=== PATIENT | female | born 1955 | race Caucasian/White ===

== ENCOUNTER → 2024-04-20 | Outpatient (CLI) | payer BC, SELFPAY ==
[2024-04-20 08:47] LABS: Basophils # (Auto) 0.1 Thou/mm3 (0.0-0.2); Basophils % (Auto) 1 % (0-2.5); Eosinophils # (Auto) 0.2 Thou/mm3 (0.0-0.5); Eosinophils % (Auto) 4 % (0-10); Hematocrit 35.5 % (36.0-46.0); Hemoglobin 11.1 g/dL (12.0-16.0); Immature Granulocytes % (Auto) 0 % (0-0); Immature Granulocytes Auto 0.01 Thou/mm3 (0.00-0.00); Lymphocytes # (Auto) 1.6 Thou/mm3 (1.0-4.8); Lymphocytes % (Auto) 31 % (10-50); Mean Corpuscular HGB Conc 31.3 g/dl (31.0-37.0); Mean Corpuscular Volume 89 fL (80-100); Monocytes # (Auto) 0.4 Thou/mm3 (0.0-0.8); Monocytes % (Auto) 8 % (0-12); Neutrophils # (Auto) 2.9 Thou/mm3 (1.8-7.7); Neutrophils % (Auto) 57 % (37-80); Nucleated Red Blood Cell % 0 /100 WBC (0); Platelet Count 204 Thou/mm3 (140-440); RDW Standard Deviation 46.2 fL (36.4-46.3); Red Blood Count 3.97 Miln/mm3 (4.00-5.20); White Blood Count 5.1 Thou/mm3 (3.6-11.0)
[2024-04-20 09:08] LABS: Alanine Aminotransferase 46 U/L (10-49); Albumin, Serum 4.4 gm/dL (3.4-4.8); Alkaline Phosphatase 78 U/L (46-116); Anion Gap 7 (7-16); Aspartate Amino Transferase 36 U/L (0-34); BUN/Creatinine Ratio 8 Ratio (12-20); Bilirubin,Total 0.5 mg/dL (0.3-1.2); Blood Urea Nitrogen 7 mg/dL (9-23); Calcium 8.6 mg/dL (8.3-10.6); Calcium (Corrected) 8.6 mg/dL (8.5-10.1); Carbon Dioxide 28.5 mMol/L (20.0-31.0); Chloride 107 mMol/L (98-107); Creatinine (Component) 0.9 mg/dL (0.6-1.3); Globulin 2.2 gm/dL (2.3-3.5); Glucose 96 mg/dL (74-106); Osmolality,Calculated 281 (275-295); Potassium 4.2 mMol/L (3.4-5.1); Sodium 142 mMol/L (136-145); Total Protein 6.6 gm/dL (5.7-8.2); eGFR > 60 See Note
[2024-04-20 09:19] LABS: CA 15-3 16.5 U/mL (<32.4); Carcinoembryonic Antigen 1.5 ng/mL (0.0-5.0)
== END | disposition home or self-care (01) ==
LOC: SCTO 07:14
PROVIDERS: PCP Family Medicine; Referring Provider Internal Medicine Hematology & Oncology; Visit Provider Internal Medicine Hematology & Oncology
DX: C50.211 Malignant neoplasm of upper-inner quadrant of right female breast (principal)
CPT/HCPCS: 36415; 80053; 82378; 85025; 86300

== ENCOUNTER 2024-05-02 11:03 | Outpatient (RCR) | payer BC, SELFPAY ==
--- NOTE | 2024-05-03 06:26 | CTCFLWUP_ITS ---
Patient: GOLD LAIRD : 1955 Page 5 of 6 FOLLOW UP NOTE DATE OF SERVICE: 05/02/2024 NAME: GOLD LAIRD ACCOUNT: [id number] : 1955 AGE: 69 INTERVAL HISTORY: Patient doing well. She says she does not want to do further mammograms here and will follow with the Dr. Pandey. She has appointment coming up with him. Otherwise denies any other complaint. ONCOLOGY HISTORY: DIAGNOSIS: Malignant neoplasm of upper-inner quadrant of right female breast [ICD10] C50.211 Stage Ia (pT1a, sN0, cM0), ER positive, WA positive, HER2/yolande, grade 1 invasive ductal carcinoma of the right breast. S/p lumpectomy and sentinel lymph node biopsy (01/21/2023) On tamoxifen since 03/03/2023. History of Nelson's esophagus, history of fundoplication x 2, history of vagotomy. Osteoporosis. The patient is getting Prolia injections from her title agent in [place] every 6 months. DATE OF DIAGNOSIS: 12/22/2022 STAGE/TNM: Stage Ia (pT1a, sN0, cM0), ER positive, WA positive, HER2/yolande, grade 1 invasive ductal carcinoma of the right breast. 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 Citracal plus D - 250 mg calcium- 200 unit 1 tab Daily 2. Compazine - 15 mg 3. gabapentin - 100 mg 1 tab Three times a day 4. levothyroxine - 112 mcg/24 h Daily 5. nystatin - 100,000 unit/gram 1 Application twice a day to affected areas 6. Pepcid - 20 mg As needed 7. rabeprazole sodium - 20 mg Daily 8. tamoxifen - 20 mg 1 tab one tab po q daily 9. Zofran - As needed Medications Last Reconciled by Fabiola Daniels MA on 05/02/2024 ALLERGIES: tetracycline HCl REVIEW OF SYSTEMS: A complete 14-point review of systems was performed and is negative except as noted in interval history. PHYSICAL EXAMINATION: VITAL SIGNS: Temperature?98.1, B/P?124/65, Oxygen?Saturation?100% Weight?175?lbs PAIN: 0 - No pain ECOG Performance Status: 0 - Asymptomatic and fully active GENERAL APPEARANCE: Appears well, in no apparent distress, appropriately interactive. HEENT: Normocephalic, no temporal wasting, normal conjunctiva, no scleral icterus, normal hearing, lips without lesions, neck normal range of motion. CARDIOVASCULAR: Not assessed. PULMONARY: Normal respiratory effort, no respiratory distress or use of accessory muscles, speaking in full sentences, no tachypnea. EXTREMITIES: No pedal edema or cyanosis. SKIN: Normal skin appearance. NEUROLOGIC: Alert and oriented x4. PSHYCHIATRIC: Appropriate affect, mood normal, behavior normal, intact thought and speech. Breast/axilla and chest examination do not reveal any palpable masses LABORATORY DATA: I have personally reviewed and interpreted each of the patient?s relevant lab tests, abnormal findings are below: Date 04/20/24 ??WHITE?BLOOD?COUNT?(Thou/mm3) 5.1 ??RED?BLOOD?COUNT?(Miln/mm3) 3.97?L ??HEMOGLOBIN?(gm/dl) 11.1?L ??HEMATOCRIT?(%) 35.5?L ??PLATELET?COUNT?(Thou/mm3) 204 ??NEUTROPHILS?%,?AUTO?(%) 57 ??LYMPH?%,?AUTO?(%) 31 ??NEUTROPHILS,?AUTO?(Thou/mm3) 2.9 ASSESSMENT/PLAN: 1. The patient is clinically doing well without any complaints. Chest pain is resolved. 2. Recent PET/CT scan is negative. 3. Tolerating tamoxifen very well without any significant side effects. Tamoxifen was started on 03/09/2023. 4. Stage Ia (pT1a, sN0, cM0), ER positive, WA positive, HER2/yolande, grade 1 invasive ductal carcinoma of the right breast. 5. S/p lumpectomy and sentinel lymph node biopsy (01/21/2023) 6. History of Nelson's esophagus, history of fundoplication x 2, history of vagotomy. 7. Osteoporosis. The patient gets Prolia injections from her title agent in [place] every 6 months. 1. Continue tamoxifen. 2. Continue Citracal. 3. Patient will be following with Dr. Katherin stewart 4. 6-month mammogram ordered 5. Patient gets her Prolia shots and with rheumatology 6. I will see her back in clinic in 6 months with labs drawn prior to the visit. CBC CMP CA 15-3 mammogram RETURN TO CLINIC: 6 months BILLING AND COMPLIANCE: I reviewed external records from providers outside my specialty as summarized above. I spent a total of 50 minutes on this patient?s care on the day of their visit excluding time spent related to any billed procedures. This time includes time spent with the patient as well as time spent documenting in the medical record, reviewing patients records and tests, obtaining history, placing orders, communicating with other healthcare professionals, counseling the patient, family or caregiver, and/or care coordination for the diagnoses above. Electronically Signed by: Lucas Vidal MD T: 6:24 AM CC: PCP: Vania Hernández Referring: Vania Hernández This document was completed utilizing speech recognition software. Grammatical errors, random word insertions, pronoun errors, and incomplete sentences are an occasional consequence of this system due to software limitations, ambient noise, and hardware issues. Any formal questions or concerns about the content, text or information contained within the body of this dictation should be directly addressed to the provider for clarification.
== END 2024-05-25 23:59 | disposition home or self-care (01) ==
LOC: SCTC 11:03
PROVIDERS: PCP Family Medicine; Referring Provider Family Medicine; Visit Provider Internal Medicine Hematology & Oncology
DX: C50.411 Malignant neoplasm of upper-outer quadrant of right female breast (principal); Z17.0 Estrogen receptor positive status [ER+]; Z17.21 Progesterone receptor positive status; Z17.32 Human epidermal growth factor receptor 2 negative status; Z90.11 Acquired absence of right breast and nipple; Z79.810 Long term (current) use of selective estrogen receptor modulators (SERMs); M81.0 Age-related osteoporosis without current pathological fracture
CPT/HCPCS: 99213; G0463

== ENCOUNTER 2024-05-06 15:05 | Emergency (ER) | payer BC, SELFPAY ==
[2024-05-06] VITALS (7 sets, daily range): BP systolic 131–149; BP diastolic 66–79; PULSE 55–72; RESP 16–23; TEMP 36.7–37.4; O2SAT 97–100; BMI 23.5
--- NOTE | 2024-05-06 15:11 | PC.NURSE ---
biba from home for n/v has episodes of emesis, last time was about 3 months ago. accompanied by chest pain.
--- NOTE | 2024-05-06 15:19 | EKG_ITS ---
[facility] Test Date: 2024-05-06 Pat Name: GOLD LAIRD Department: Room: - Gender: Female Cryptozoologist: : 1955 Requested By: ED Temporary Provider Order Number: [id number] Reading MD: ED Temporary Provider Measurements Intervals [place] Rate: 56 P: 31 ND: 159 QRS: -13 QRSD: 96 T: -12 QT: 451 QTc: 437 Interpretive Statements SINUS BRADYCARDIA LOW QRS VOLTAGE IN PRECORDIAL LEADS [QRS DEFLECTION < 1.0 mV IN CHEST LEADS] POSSIBLE ANTERIOR MYOCARDIAL INFARCTION , OF INDETERMINATE AGE [30 ms Q WAVE IN V3/V4, OR R < 0.2 mV IN V4] Compared to ECG 01/15/2023 13:03:19 Myocardial infarct finding now present Ventricular premature complex(es) no longer present Incomplete right bundle-branch block no longer present T-wave abnormality no longer present Prolonged QT interval no longer present /store/S0/[id number].pdf
--- NOTE | 2024-05-06 15:20 | XR_ITS ---
Examination: AP chest single view Technique one AP portable sitting chest single view Exam date and time: May 06, 2024 1533 hrs. Indications: Chest pain today. Findings: Mild enlargement left ventricle Mild vascular congestion No lobar pneumonia Impression: Mild vascular congestion No lobar pneumonia
[2024-05-06 15:40] LABS: Basophils % (Auto) 1 % (0-2.5); Eosinophils % (Auto) 0 % (0-10); Hematocrit 37.8 % (36.0-46.0); Hemoglobin 12.4 g/dL (12.0-16.0); Immature Granulocytes % (Auto) 0 % (0-0); Immature Granulocytes Auto 0.02 Thou/mm3 (0.00-0.00); Lymphocytes % (Auto) 11 % (10-50); Mean Corpuscular HGB Conc 32.8 g/dl (31.0-37.0); Mean Corpuscular Hemoglobin 28.1 pg (25.0-35.0); Mean Corpuscular Volume 86 fL (80-100); Monocytes # (Auto) 0.2 Thou/mm3 (0.0-0.8); Monocytes % (Auto) 2 % (0-12); Neutrophils # (Auto) 7.4 Thou/mm3 (1.8-7.7); Neutrophils % (Auto) 86 % (37-80); Nucleated Red Blood Cell % 0 /100 WBC (0); Platelet Count 239 Thou/mm3 (140-440); RDW Standard Deviation 43.7 fL (36.4-46.3); Red Blood Count 4.42 Miln/mm3 (4.00-5.20); White Blood Count 8.6 Thou/mm3 (3.6-11.0)
[2024-05-06 15:56] LABS: B-Type Natriuretic Peptide 111 pg/mL (0-100)
[2024-05-06 15:57] LABS: Alanine Aminotransferase 19 U/L (10-49); Albumin, Serum 4.8 gm/dL (3.4-4.8); Albumin/Globulin Ratio 1.8 (1.2-2.2); Alkaline Phosphatase 77 U/L (46-116); Anion Gap 14 (7-16); Aspartate Amino Transferase 23 U/L (0-34); BUN/Creatinine Ratio 10 Ratio (12-20); Bilirubin,Total 0.6 mg/dL (0.3-1.2); Blood Urea Nitrogen 9 mg/dL (9-23); Calcium 9.3 mg/dL (8.3-10.6); Calcium (Corrected) 9.3 mg/dL (8.5-10.1); Carbon Dioxide 20.2 mMol/L (20.0-31.0); Chloride 105 mMol/L (98-107); Creatinine (Component) 0.9 mg/dL (0.6-1.3); Globulin 2.7 gm/dL (2.3-3.5); Glucose 163 mg/dL (74-106); Lipase 24 U/L (12-53); Magnesium 1.6 mg/dL (1.6-2.6); Osmolality,Calculated 280 (275-295); Potassium 3.2 mMol/L (3.4-5.1); Sodium 139 mMol/L (136-145); Total Protein 7.5 gm/dL (5.7-8.2); Troponin I < 0.020 ng/mL (0.0-0.045); eGFR > 60 See Note
--- NOTE | 2024-05-06 16:06 | EDNOTE_ITS ---
<Statement entered by Yolanda Foster MD - 05/08/24 06:44> As co-signing physician, I was present and available for consult prn. I concur with the plan and care as documented by the midlevel provider. Nausea/Vomit./Diarrhea-RME/HPI General Chief complaint: Nausea/Vomiting/Diarrhea Stated complaint: NAUSEA VOMITING Time Seen by Provider: 05/06/24 15:19 Source: patient Arrival date/time: 05/06/24 15:05 This is a 69-year-old female presenting to the ED BIBA from home for reported nausea/vomiting. Patient at this time is not being verbal. 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 Reports to ER with medical instructions stating the patient has episodes of nausea, vomiting ,hypotension and fluctuating heart rate due to intractable nausea from a severed vagus nerve in 2016. She does have an received a usual, cocktail of Benadryl and Reglan and Haldol helps her. She reports she attempted her home medications with no help prompting her ED visit today. No other complaints. Mode of arrival: ambulatory Related Data Home Medications ?Medication ?Instructions ?Recorded ?Confirmed famotidine 20 mg tablet (Pepcid) 20 mg PO QDAY 4 01/02/24 gabapentin 100 mg capsule 100 mg PO TID 01/02/2401/01 levothyroxine 112 mcg tablet 112 mcg PO QDAY 01/02/24 01/02/24 omeprazole 20 mg tablet,delayed 20 mg PO QDAY 01/02/24 01/02/24 release ondansetron 4 mg disintegrating 4 mg PO Q6H PRN Nausea 01/02/24 01/02/24 tablet tamoxifen 20 mg tablet 20 mg PO QDAY 01/02/2401/01 Allergies Allergy/AdvReac Type Severity Reaction Status Date / Time tetracycline Allergy Severe WELTS / Verified 01/02/24 07:56 SWELLING Review of Systems Review of Systems Systems Reviewed: All systems reviewed, normal except as documented Narrative Review of Systems: Gen: No fever, no chills, no weight loss EYES: No discharge, no visual changes, no pain HEENT: No ear pain, no congestion, no sore throat PULM: No shortness of breath, no cough, no congestion CV: No chest pain, no dyspnea on exertion, no palpitations GI: +nausea, +vomiting, no diarrhea, no pain, no constipation : No frequency, no urgency, no dysuria Musc/skel: No joint pain, no back pain Skin: No rash Psyc: No hallucinations, no depression Heme/Lymph: No easy bleeding or bruising tendencies Neuro: No weakness, no headache ED Exam Narrative Physical exam: General: Sittiing in Exam t in mild distress due to vomiting. HENT: normocephalic, atraumatic, EOMI, PERRLA, moist mucous membranes Chest: chest wall is nontender Cardiac: regular rate and rhythm, normal S1 and S2, no murmurs, rubs, or gallops, capillary refill ?2 seconds Pulmonary: clear to auscultation bilaterally, no wheezing, crackles, or rhonchi Abdominal: active bowel sounds, soft, nontender, nondistended Neuro: A&OX3, CN II-XII intact, sensation grossly intact bilaterally in UE and LE. Skin: no rashes, no ecchymosis Ext: no lower extremity edema Course Quality Measures none Orders Category Date Time Status Early Childhood Coordinator STAT Care 05/06/24 15:20 Completed Continuous Pulse Oximetry ONCE Care 05/06/24 15:20 Completed EKG (ED ONLY) *Do not use* NOW Care 05/06/24 15:19 Completed Insert IV STAT Care 05/06/24 15:20 Completed EKG (ED Only) Urgent Exams 05/06/24 15:19 Draft XR chest 1V portable Stat Exams 05/06/24 15:20 Completed B-Type Natriuretic Peptide Stat Lab 05/06/24 15:32 Completed CBC Stat Lab 05/06/24 15:32 Completed Comprehensive Metabolic Panel Stat Lab 05/06/24 15:32 Completed Lipase Stat Lab 05/06/24 15:32 Completed Magnesium Stat Lab 05/06/24 15:32 Completed Prothrombin Time with INR Stat Lab 05/06/24 15:32 Completed Troponin I Stat Lab 05/06/24 15:32 Completed DiphenhydrAMINE INJ [Benadryl Inj] Med 05/06/24 16:03 Discontinued 12.5 mg IVP X1 ONE DiphenhydrAMINE INJ [Benadryl Inj] Med 05/06/24 16:05 Discontinued 25 mg IVP X1 ONE Haloperidol Lactate [Haldol Inj] Med 05/06/24 16:03 Discontinued 5 mg IM X1 ONE Magnesium Sulfate 2 GM Ivpb [Magnesium Sulfate Ivpb] Med 05/06/24 16:28 Discontinued 2 gm in 50 ml IV X1 Metoclopramide Inj [Reglan Inj] Med 05/06/24 16:03 Discontinued 10 mg IVP X1 ONE Sodium Chloride 0.9% 1000 ml [Ns] 1,000 ml Med 05/06/24 16:03 Discontinued IV 999 mls/hr Vital Signs Vital signs: Vital Signs Temperature 98.5 F 05/06/24 15:19 Pulse Rate 72 05/06/24 15:19 Respiratory Rate 20 05/06/24 15:19 Blood Pressure 136/71 H 05/06/24 15:19 Pulse Oximetry (%) 100 05/06/24 15:19 Oxygen Delivery Method Room Air 05/06/24 15:19 Nausea/Vomiting/Diarrhea MDM Narrative MDM Narrative:: Pt is awake and alert, no distress. Vital signs stable. General labs, EKG chest x-ray ordered. Treatment here included IV fluid and Benadryl and Reglan and Haldol as she normally receives for this issue. While in ED the nurse brought in a strip noticed she had a EKG change after medication. I did go ahead and loaded her up with mag her last mag level was 1.6. Potassium is 3.2 will do oral dose x 1 when patient is improved Based on my best medical judgment, made decision no further evaluation or treatment indicated at this time.? Patient understands and agrees to the discharge instructions customized and printed, see below. 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 Social determinants that could affect healthcare access:: none Patient has the following chronic illnesses:: Chronic vomiting, hypothyroidism, history of fundoplication How is presenting disease/condition affected by chronic disease/condition?: no chronic disease Evaluation data The following diagnostics were reviewed and interpreted by me:: lab results, radiology exam(s) and EKG tracing(s) Lab and/or radiology exams considered but not ordered:: No Interpretation Summary: Examination: AP chest single view Technique one AP portable sitting chest single view Exam date and time: May 06, 2024 1533 hrs. Indications: Chest pain today. Findings: Mild enlargement left ventricle Mild vascular congestion No lobar pneumonia Impression: Mild vascular congestion No lobar pneumonia Medications / Prescriptions Medications / Prescriptions considered but not ordered:: No Medication administrations:: Medication Administration History Discontinued Medications Diphenhydramine HCl (Diphenhydramine Inj 50 Mg/Ml Vial) 12.5 mg IVP X1 ONE Stop: 05/06/24 16:04 Last Admin: 05/06/24 16:54 Dose: Not Given Documented By: Non-Admin Reason: Cancelled by Provider Diphenhydramine HCl (Diphenhydramine Inj 50 Mg/Ml Vial) 25 mg IVP X1 ONE Stop: 05/06/24 16:06 Last Admin: 05/06/24 16:11 Dose: 25 mg Documented By: Haloperidol Lactate (Haloperidol Lact Inj 5 Mg/Ml Vial) 5 mg IM X1 ONE Stop: 05/06/24 16:04 Last Admin: 05/06/24 16:13 Dose: 5 mg Documented By: Sodium Chloride (Ns) 1,000 mls @ 999 mls/hr IV .Q1H1M ONE Stop: 05/06/24 17:03 Last Infusion: 05/06/24 17:47 Dose: Infused Documented By: Admin: 05/06/24 16:30 Dose: 999 mls/hr Documented By: Magnesium Sulfate (Magnesium Sulfate Ivpb) 2 gm in 50 mls @ 25 mls/hr IV X1 ONE Stop: 05/06/24 18:27 Last Admin: 05/06/24 16:44 Dose: 25 mls/hr Documented By: Metoclopramide HCl (Metoclopramide Inj 5 Mg/Ml Vial 2 Ml) 10 mg IVP X1 ONE; Protocol Stop: 05/06/24 16:04 Last Admin: 05/06/24 16:16 Dose: 10 mg Documented By: All medications administered and effective Consultations Consultation(s) initiated? (list below): No Diagnosis Nausea Differential Diagnosis: traveler's diarrhea, food poisoning, gastroenteritis and dehydration Most likely diagnosis given after review of the tests above:: Electrolyte imbalance, chronic nausea. Vomiting Admission Indicated Admission indicated?: not indicated Admission Request Was there a request for admission?: No Disposition Plan Disposition Plan: Discharge Discharge Attestation Discharge Attestation: The patient and all family members were given an opportunity to ask questions and understood the discharge instructions. Discharge instructions specifically effects, indications for sooner follow up or return to the emergency department, and the expected course of current diagnosis. Patient condition: Stable Discharge Plan Plan Patient Disposition: HOME (Self Care) Prescriptions/Referrals Prescriptions/Med Rec: No Action famotidine [Pepcid] 20 mg Tablet 20 mg PO QDAY gabapentin 100 mg capsule 100 mg PO TID Patient Comments: TAKE 1 CAPSULE BY MOUTH THREE TIMES A DAY FOR 30 DAYS ondansetron 4 mg Tablet,Disintegrating 4 mg PO Q6H PRN (Reason: Nausea) tamoxifen 20 mg tablet 20 mg PO QDAY Patient Comments: TAKE 1 TABLET BY MOUTH EVERY DAY levothyroxine 112 mcg tablet 112 mcg PO QDAY Patient Comments: TAKE 1 TABLET BY MOUTH EVERY DAY omeprazole 20 mg Tablet,Delayed Release (Dr/Ec) 20 mg PO QDAY Referrals: No Primary/Family,Physician [Primary Care Provider] - In 1 week Problem List Clinical Impression: Nausea & vomiting Patient/Caregiver Discharge Instructions Discharge Activity: activity as tolerated Education Materials: ED Diet for Vomiting or ... Additional Instructions: It is very important that you follow-up with your primary doctor within 2 days. Continue take your medication as directed. reTurn to the emergency department this any worsening symptoms or change in condition. Print Language: Citizen Of [place] Stand Alone Forms: Radha Award Info., Patient Portal Info Letter PA/ROSAURA Supervising Physician PA/ROSAURA Supervising Physician: Dr. Foster
[2024-05-06] MEDS: DiphenhydrAMINE INJ 50 MG/ML VIAL 25 MG IVP (16:11)
[2024-05-06] MEDS: HALOPERIDOL LACT INJ 5 MG/ML VIAL IM (16:13)
[2024-05-06] MEDS: METOCLOPRAMIDE INJ 5 MG/ML VIAL 2 ML 10 MG IVP (16:16)
[2024-05-06] MEDS: SODIUM CHLORIDE 0.9% 1000 ML 1,000 ML 999 ML IV (16:30)
[2024-05-06] MEDS: Magnesium Sulfate 2 GM Ivpb 2 GM/50 ML BAG IV (16:44)
== END 2024-05-06 20:38 | disposition home or self-care (01) ==
PROVIDERS: Nurse Practitioner Primary Care; Emergency Provider Emergency Medicine
DX: R11.2 Nausea with vomiting, unspecified (principal); R07.9 Chest pain, unspecified
CPT/HCPCS: 36415; 71045; 80053; 83690; 83735; 83880; 84484; 85025; 85610; 93005; 96361; 96374; 96375; 99284; J1200; J1630; J2765; J3475; J7030

== ENCOUNTER 2024-06-05 08:13 | Outpatient (RCR) | payer BC, SELFPAY | END 2024-06-25 23:59 | disposition home or self-care (01) | LOC: SCTC 08:13 | PROVIDERS: PCP Family Medicine; Referring Provider Radiology Therapeutic Radiology; Visit Provider Radiology Therapeutic Radiology | DX: C50.211 Malignant neoplasm of upper-inner quadrant of right female breast (principal); Z17.0 Estrogen receptor positive status [ER+]; Z17.21 Progesterone receptor positive status; Z17.32 Human epidermal growth factor receptor 2 negative status; Z90.11 Acquired absence of right breast and nipple; Z92.3 Personal history of irradiation; Z79.810 Long term (current) use of selective estrogen receptor modulators (SERMs); M81.0 Age-related osteoporosis without current pathological fracture | CPT/HCPCS: 99212; G0463 ==

== ENCOUNTER → 2024-07-20 | Outpatient (CLI) | payer BC, SELFPAY ==
--- NOTE | 2024-07-20 12:00 | XR_ITS ---
Examination: Bone densitometry Date and time of exam:July 20, 2024 1221 hours INDICATIONS: Menopause age 57 post menopausal elbow fracture personal history osteoporosis Technique: Lumbar spine and hip total bone mineralization values of an calculated. Peak reference and age match control results have been displayed. Findings: Lumbar spine total bone mineralization is0.993 gm/cm2. This is 0.5 standard deviations below peak reference. This is 1.4 standard deviations above age-matched controls. Hip total bone mineralization is 0.616 gm/cm2 This is 2.7 standard deviations below peak reference. This is 3 standard deviations below age-matched controls Impression: There is normal mineralization based on lumbar spine measurements. There is osteoporosis based on hip measurements Lumbar mineralization is increase 10.2% compared with May 21, 2022 Hip mineralization is increased 1.0% compared with May 21, 2022
== END | disposition home or self-care (01) ==
LOC: CDIM 11:32
PROVIDERS: PCP Family Medicine; Referring Provider Physician Assistant Medical; Visit Provider Physician Assistant Medical
DX: M81.0 Age-related osteoporosis without current pathological fracture (principal)
CPT/HCPCS: 77080

== ENCOUNTER → 2024-08-02 | Outpatient (CLI) | payer BC, SELFPAY ==
--- NOTE | 2024-08-02 10:00 | XR_ITS ---
Examination: Diagnostic digital mammography, bilateral Computer aided detection 3-D breast Tomosynthesis, bilateral Date and time of exam: August 02, 2024 0945 hours Comparison made to mammograms dated to March 19, 2020 Technique: Nonmagnified MLO, CC views of the breasts to been obtained, reconstructed from 3-D Tomosynthesis images. R2 computer aided detection program utilized for evaluation of suspicious masses and/or abnormal calcifications. 3-D Tomosynthesis images obtained. Findings: Scattered areas of fibroglandular density. Scar formation upper right breast with surgical clips again depicted consistent with history treated right breast cancer Benign calcifications. No interval suspicious masses Impression: BI-RADS Category 2: Benign findings Recommend yearly follow-up mammography.
== END | disposition home or self-care (01) ==
LOC: CDIM 09:29
PROVIDERS: Referring Provider Surgery; Visit Provider Surgery
DX: R92.323 Mammographic fibroglandular density, bilateral breasts (principal); R92.1 Mammographic calcification found on diagnostic imaging of breast
CPT/HCPCS: 77062; 77066; G0279

== ENCOUNTER 2024-08-14 06:36 | Observation (INO) | payer BC, SELFPAY ==
[2024-08-14] VITALS (13 sets, daily range): BP systolic 85–153; BP diastolic 58–76; PULSE 45–84; RESP 14–99; TEMP 36.1–37.3; O2SAT 92–100; BMI 25.8; BMI 24.7
--- NOTE | 2024-08-14 07:18 | EKG_ITS ---
[facility] Test Date: 2024-08-14 Pat Name: GOLD LAIRD Department: Room: - Gender: Female Supervisor Mending: : 1955 Requested By: Gregorio Castellanos Order Number: [id number] Reading MD: Gregorio Castellanos Measurements Intervals [place] Rate: 65 P: 34 TX: 142 QRS: -2 QRSD: 94 T: -14 QT: 440 QTc: 461 Interpretive Statements SINUS RHYTHM WITH FREQUENT VENTRICULAR PREMATURE COMPLEXES IN A BIGEMINAL PATTERN NONSPECIFIC ST & T-WAVE ABNORMALITY ABNORMAL RHYTHM ECG Compared to ECG 05/06/2024 15:27:13 Ventricular premature complex(es) now present T-wave abnormality now present Sinus bradycardia no longer present Myocardial infarct finding no longer present /store/S0/[id number]
--- NOTE | 2024-08-14 07:18 | PD.EDNV ---
Nausea/Vomit./Diarrhea-RME/HPI General Chief complaint: Nausea/Vomiting/Diarrhea Stated complaint: N/V Time Seen by Provider: 08/14/24 07:11 Arrival date/time: 08/14/24 06:36 RME / HPI RME / HPI Narrative: DR. DAVIES MAIN ED EVALUATION: 69 year old female presents to the Emergency Department [facility] with complaints of nausea and vomiting nonstop today. Symptoms are moderate. No other symptoms reported at this time. 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 PMHx: Osteoporosis, Nelson's Esophagus, osteopenia, osteoarthritis, gastroparesis, diverticulitis, hypothyroidism, prolapsed mitral valve, right breast cancer, invasive ductal carcinoma. PSHx: Double inguinal hernia repair in 1959, Live fundoplication & hiatal hernia repair in 2001, complete thyroidectomy in 2003, torpet fundoplication & hernia repair in 2015 and at that time they severed her vagal nerve and since has nausea and vomiting problems; G/JPEG placement from 05/2015 and removed 01/2017, cholecystectomy in 2015, pyloroplasty in 2015, and right lumpectomy in 2022. Social Hx: No tobacco, alcohol, or substance use. Related Data Home Medications ?Medication ?Instructions ?Recorded ?Confirmed famotidine 20 mg tablet (Pepcid) 20 mg PO QDAY 01/02/24 01/02/24 gabapentin 100 mg capsule 100 mg PO TID 01/02/24 01/02/24 levothyroxine 112 mcg tablet 112 mcg PO QDAY 01/02/24 01/02/24 omeprazole 20 mg tablet,delayed 20 mg PO QDAY 01/02/24 01/02/24 release ondansetron 4 mg disintegrating 4 mg PO Q6H PRN Nausea 01/02/24 01/02/24 tablet tamoxifen 20 mg tablet 20 mg PO QDAY 01/02/24 01/02/24 Allergies Allergy/AdvReac Type Severity Reaction Status Date / Time tetracycline Allergy Severe WELTS / Verified 01/02/24 07:56 SWELLING Review of Systems Review of Systems Systems Reviewed: All systems reviewed, normal except as documented Narrative Review of Systems: Constitutional: DENIES: fevers; Eyes: DENIES: loss of vision; Head/Ear/Nose: DENIES: loss of hearing. Throat: DENIES: dysphagia. Cardiovascular: DENIES: chest pain, dyspnea, or syncope. Respiratory: DENIES: shortness of breath; Gastrointestinal: POSITIVES: nausea and vomiting; DENIES: rectal bleeding or melena. Genitourinary: DENIES: dysuria (painful or difficult urination); Musculoskeletal: DENIES: arthralgia (pain in a joint); Skin: DENIES: rash; Neurological: DENIES: loss of function or movement; Psychiatric: DENIES: recent major life stressor, emotional problem, illicit drug use or abuse; Endocrinology: DENIES: weight change,; Hematologic/Lymphatic: DENIES: abnormal bruising. Allergic/Immunologic: DENIES: urticaria (hives). Past Medical History Past Medical History CARDIAC: Positive Cardiac Disorders, Valvular Heart Disease (mitral valve prolapse) and Hypertension RESPIRATORY: Positive Asthma GASTROINTESTINAL: Positive Gastrointestinal Disorders (GASTROPARESIS), Gall Bladder Disease, Nelson's Esophagus, Diverticulosis, Hiatal Hernia, Hemorrhoids and Gastroesophageal Reflux Disease REPRODUCTIVE: Positive Breast Cancer and Previous Pregnancies MUSCULOSKELETAL: Positive Musculoskeletal Disorders, Arthritis and Osteoporosis ENT: Positive Cataracts ENDOCRINE: Positive Endocrine Disorders and Hypothyroidism HEMATOLOGIC: Positive Blood Disorders (hx of blood clots) PSYCHO/SOCIAL: Positive Post Traumatic Stress Disorder OTHER HISTORY: Positive Hospitalization, Radiation Therapy, Chicken Pox, Measles, Cancer and Breast Cancer Surgical History SURGICAL: Positive Thyroidectomy, Abdominal Surgery, Bowel Surgery, Open Reduction Internal Fixation (ankle) and Lumpectomy (right) Social History SMOKING STATUS: Never smoker SUBSTANCE USE: does not use ALCOHOL: Never ED Exam Narrative Physical exam: Physical Exam: General: The vital signs were reviewed. Patient is actively retching when I walk in the room unable to really speak as she appears miserable and uncomfortable. The patient is non-toxic, in no apparent distress and appears healthy with a patent airway, no respiratory distress and has no apparent circulatory problems. Head & Scalp: Normocephalic, atraumatic. Face: Appears normal and is without lesions, deformity. Ears: Left external pinna appears normal. Right external pinna appears normal. Eyes: The sclera is anicteric. No obvious photophobia. The Left and Right Orbit/Lid/Conjunctiva appears normal without swelling, discoloration or injection. Nose: The nose is without deformity, discharge or tenderness; Throat: Appears normal. The mucous membranes are pink and moist without exudates, redness or mass seen. The tongue appears normal. Neck: The neck is supple and no apparent mass or adenopathy. Chest: The chest wall is normal in size and symmetry and has no chest wall tenderness or crepitus. The patient displays normal ventilator effort without retractions, accessory muscle use and has adequate air movement bilaterally with no wheezes and no rales. Cardiovascular: Regular rate and rhythm; No murmurs, rubs, or gallops; Gastrointestinal: The abdomen appears normal. No obvious hernias or mass. The abdomen is soft and benign, non-distended, with no pain, no guarding and no rebound tenderness. Bowel sounds are present and normal sounding. No CVA tenderness. Genitourinary: Back/Spine: Normal inspection Extremities/Musculoskeletal/lymphatic: The bilateral upper and lower extremities are warm. There is no evidence of arterial insufficiency. There is no evidence of venous insufficiency/edema. The patient spontaneously moves bilateral upper and lower extremities with no pain and no limitation of movement. There is no apparent, injury or trauma. Skin: The skin is warm, dry and intact. No rashes. No petechia. No purpura. No abnormal bruising. The color is appropriate with no cyanosis. Mental status/Psychiatric: Mental status is appropriate for age. The patient has no apparent delusions, visual hallucinations, no apparent audible hallucinations. The patient has no apparent suicidal thoughts/ideation and no apparent homicidal thoughts/ideation. Neurological: The patient is awake, alert, interactive, cordial, cooperative and is oriented to name and situation. The patient follows commands and answers historical question with no impairment. There is no visual disturbance apparent. The pupils are equal and reactive bilaterally with normal eye movements and no diplopia The bilateral upper and lower extremities have normal strength, normal range of motion and normal functioning. The gait, station and balance were not tested due to acuity Course Quality Measures none Orders Category Date Time Status EKG (ED ONLY) *Do not use* NOW Care 08/14/24 07:18 Completed NPO NOW Care 08/14/24 07:18 Active Diet NPO (NOW) Diet 08/14/24 07:18 Active EKG (ED Only) Stat Exams 08/14/24 07:18 Draft B-Type Natriuretic Peptide Stat Lab 08/14/24 07:50 Completed CBC Stat Lab 08/14/24 07:50 Completed Comprehensive Metabolic Panel Stat Lab 08/14/24 07:50 Completed Lactate (Lactic Acid) Stat Lab 08/14/24 07:50 Completed Lactic Acid, 3 HR Stat Lab 08/14/24 11:12 Completed Lipase Stat Lab 08/14/24 07:50 Completed Prothrombin Time with INR Stat Lab 08/14/24 07:50 Completed Troponin I Stat Lab 08/14/24 07:50 Completed Urinalysis Stat Lab 08/14/24 11:40 Completed Urinalysis, C/S if Indicated Stat Lab 08/14/24 11:40 Completed DiphenhydrAMINE INJ [Benadryl Inj] Med 08/14/24 07:20 Discontinued 25 mg IV X1 ONE DiphenhydrAMINE INJ [Benadryl Inj] Med 08/14/24 14:38 Discontinued 25 mg IVP X1 ONE Haloperidol Lactate [Haldol Inj] Med 08/14/24 07:19 Discontinued 2 mg IV X1 ONE Haloperidol Lactate [Haldol Inj] Med 08/14/24 14:38 Discontinued 2 mg IV X1 ONE Metoclopramide Inj [Reglan Inj] Med 08/14/24 07:17 Discontinued 10 mg IVP X1 ONE Metoclopramide Inj [Reglan Inj] Med 08/14/24 14:38 Discontinued 10 mg IVP X1 ONE Sodium Chloride 0.9% 1000 ml [Ns] 1,000 ml Med 08/14/24 07:30 Discontinued IV 200 mls/hr Sodium Chloride 0.9% 1000 ml [Ns] 1,000 ml Med 08/14/24 09:30 Discontinued IV 999 mls/hr Sodium Chloride 0.9% 1000 ml [Ns] 1,000 ml Med 08/14/24 15:11 Discontinued IV 999 mls/hr Vital Signs Vital signs: Vital Signs Temperature 98.3 F 08/14/24 07:46 Pulse Rate 56 L 08/14/24 07:46 Respiratory Rate 20 08/14/24 07:46 Blood Pressure 141/76 H 08/14/24 07:46 Pulse Oximetry (%) 96 08/14/24 07:46 Oxygen Delivery Method Room Air 08/14/24 07:46 Nausea/Vomiting/Diarrhea MDM Narrative MDM Narrative:: I, Linda Beyer am scribing for and in the presence of Dr. Davies. Patient comes in with intractable nausea and vomiting has had this multiple times before states she has a severed vagus nerve do a complication of the fundoplication years ago. She states Benadryl Haldol and Reglan are very helpful has a piece of paper that shows her past history detailed out on it she got those medicines and 30 minutes later she was much more comfortable and actually she was sleepy for a while. Went back and reevaluated her she was still feeling nauseated and her initial lactic acid was quite elevated as she is probably presumed dehydrated she had intractable vomiting for 8 hours prior to arrival. A second lactic acid came back after 2 L of fluid and it still elevated at 2.3 but it is improved from 4.5 on the initial lactic acid. Urinalysis essentially came back negative with 13 red cells but send on clean-catch specimen. BNP came back at 120 troponin was negative transaminases and bilirubin were normal. BUN 11 creatinine 1.0 sodium 142 potassium 3.5 chloride 105 CO2 21.7. White count 8.0 hemoglobin 12.3. On reevaluation the patient is still quite nauseated and actually almost looks as bad as when she first came in so it appears the medicines are wearing off and she is got intractable nausea with retching at this time. I will repeat the dose of the medicine we gave her other as she reports this is helpful in the past and then I spoke with the hospitalist and they agreed admit the patient Patient data External records reviewed:: EMS form Clinical information provided by:: patient and EMS Social determinants that could affect healthcare access:: none Patient has the following chronic illnesses:: PMHx: Osteoporosis, Nelson's Esophagus, osteopenia, osteoarthritis, gastroparesis, diverticulitis, hypothyroidism, prolapsed mitral valve, right breast cancer, invasive ductal carcinoma. PSHx: Double inguinal hernia repair in 1960, Live fundoplication & hiatal hernia repair in 2001, complete thyroidectomy in 2003, torpet fundoplication & hernia repair in 2016 and at that time they severed her vagal nerve and since has nausea and vomiting problems; G/JPEG placement from 05/2015 and removed 01/2017, cholecystectomy in 2015, pyloroplasty in 2015, and right lumpectomy in 2022. How is presenting disease/condition affected by chronic disease/condition?: exacerbated by Evaluation data The following diagnostics were reviewed and interpreted by me:: lab results and EKG tracing(s) (EKG#1: EKG at 0837 hours. Interpreted by me: sinus rhythm, rate 65, intermittent ectopic beats, no STEMI) Lab and/or radiology exams considered but not ordered:: none Interpretation Summary: See above under MDM narrative. Medications / Prescriptions Medications / Prescriptions considered but not ordered:: none Medication administrations:: Medication Administration History Acetaminophen (Acetaminophen Supp 650 Mg Supp) 650 mg NV Q6HR PRN PRN Reason: Fever > 100.3 Stop: 09/13/24 15:40 Multivitamins/Minerals 10 ml/ (Lactated Ringer's) 1,010 mls @ 120 mls/hr IV .Q8H25M [facility] Stop: 08/15/24 00:54 Last Admin: 08/14/24 17:12 Dose: 120 mls/hr Documented By: JOSETTE Lactated Ringer's (Lactated Ringers) 1,000 mls @ 120 mls/hr IV .Q8H20M [facility] Stop: 09/14/24 00:54 Levothyroxine Sodium (Levothyroxine Inj 100 Mcg Vial) 50 mcg IV DAILY JOSE Stop: 09/14/24 05:59 Metoclopramide HCl (Metoclopramide Inj 5 Mg/Ml Vial 2 Ml) 10 mg IVP Q6H JOSE; Protocol Stop: 09/13/24 20:44 Ondansetron HCl (Ondansetron Inj 2 Mg/Ml Inj 2 Ml) 4 mg IV Q6H JOSE; Protocol Stop: 09/13/24 15:59 Last Admin: 08/14/24 17:11 Dose: 4 mg Documented By: JOSETTE Pantoprazole Sodium (Pantoprazole Inj 40 Mg Vial) 40 mg IVP QDAY JOSE Stop: 09/13/24 16:14 Last Admin: 08/14/24 17:11 Dose: 40 mg Documented By: JOSETTE Discontinued Medications Diphenhydramine HCl (Diphenhydramine Inj 50 Mg/Ml Vial) 25 mg IV X1 ONE Stop: 08/14/24 07:21 Last Admin: 08/14/24 07:34 Dose: 25 mg Documented By: JOSETTE Diphenhydramine HCl (Diphenhydramine Inj 50 Mg/Ml Vial) 25 mg IVP X1 ONE Stop: 08/14/24 14:39 Last Admin: 08/14/24 15:21 Dose: 25 mg Documented By: TRES Folic Acid (Folic Acid Inj 1 Mg/0.2 Ml) 1 mg IVP X1 ONE Stop: 08/14/24 16:10 Last Admin: 08/14/24 17:12 Dose: 1 mg Documented By: JOSETTE Haloperidol Lactate (Haloperidol Lact Inj 5 Mg/Ml Vial) 2 mg IV X1 ONE Stop: 08/14/24 07:20 Last Admin: 08/14/24 07:34 Dose: 2 mg Documented By: JOSETTE Haloperidol Lactate (Haloperidol Lact Inj 5 Mg/Ml Vial) 2 mg IV X1 ONE Stop: 08/14/24 14:39 Last Admin: 08/14/24 15:20 Dose: Not Given Documented By: TRES Non-Admin Reason: Cancelled by Provider Sodium Chloride (Ns) 1,000 mls @ 200 mls/hr IV .Q5H JOSE Stop: 09/13/24 07:29 Last Infusion: 08/14/24 09:30 Dose: Infused Documented By: Admin: 08/14/24 07:49 Dose: 200 mls/hr Documented By: JOSETTE Sodium Chloride (Ns) 1,000 mls @ 999 mls/hr IV .Q1H1M ONE Stop: 08/14/24 10:30 Last Infusion: 08/14/24 11:59 Dose: Infused Documented By: Admin: 08/14/24 09:33 Dose: 999 mls/hr Documented By: JOSETTE Sodium Chloride (Ns) 1,000 mls @ 999 mls/hr IV .Q1H1M ONE Stop: 08/14/24 16:11 Last Infusion: 08/14/24 17:29 Dose: Infused Documented By: Admin: 08/14/24 15:13 Dose: 999 mls/hr Documented By: TRES Lactated Ringer's (Lactated Ringers) 1,000 mls @ 80 mls/hr IV .[id number] [facility] Stop: 09/13/24 16:10 Metoclopramide HCl (Metoclopramide Inj 5 Mg/Ml Vial 2 Ml) 10 mg IVP X1 ONE; Protocol Stop: 08/14/24 07:18 Last Admin: 08/14/24 07:33 Dose: 10 mg Documented By: JOSETTE Metoclopramide HCl (Metoclopramide Inj 5 Mg/Ml Vial 2 Ml) 10 mg IVP X1 ONE; Protocol Stop: 08/14/24 14:39 Last Admin: 08/14/24 15:13 Dose: 10 mg Documented By: TRES see above Consultations Consultation(s) initiated? (list below): Yes Consultation #1 (Physician, Specialty, Details): Discussed test HPI, PMHx, lab, radiology results and/or management with resident working with the hospitalist. Will admit for further evaluation and management. Accepts patient for admission. Time: 14:38 Diagnosis Nausea Differential Diagnosis: food poisoning, gastroenteritis and dehydration Most likely diagnosis given after review of the tests above:: Intractable nasuea and vomiting Admission Indicated Admission indicated?: indicated Admission Request Was there a request for admission?: Yes Admission Attestation Admission request attestation: Discussed case with [] from Hospitalist service regarding admission. Discussed patients ED course, exam findings, labs, and radiology results. The Hospitalist [agrees,declines] to accept the patient for admission. Disposition Plan Disposition Plan: Admit Discharge Plan Plan Patient Disposition: Admit Acute Care w/in Hospital Discharge Disposition comment: Hospitalist admit Problem List Clinical Impression: Intractable nausea and vomiting, Acute dehydration, Elevated lactic acid level, Vagus nerve injury, History of breast cancer
[2024-08-14] MEDS: METOCLOPRAMIDE INJ 5 MG/ML VIAL 2 ML 10 MG IVP ×3 (07:33→20:32)
[2024-08-14] MEDS: DiphenhydrAMINE INJ 50 MG/ML VIAL 25 MG IV (07:34)
[2024-08-14] MEDS: HALOPERIDOL LACT INJ 5 MG/ML VIAL 2 MG IV (07:34)
[2024-08-14] MEDS: SODIUM CHLORIDE 0.9% 1000 ML 1,000 ML 200 ML IV (07:49)
[2024-08-14 08:10] LABS: Basophils % (Auto) 0 % (0-2.5); Eosinophils % (Auto) 0 % (0-10); Hematocrit 37.4 % (36.0-46.0); Hemoglobin 12.3 g/dL (12.0-16.0); Immature Granulocytes % (Auto) 0 % (0-0); Immature Granulocytes Auto 0.03 Thou/mm3 (0.00-0.00); Lymphocytes % (Auto) 12 % (10-50); Mean Corpuscular HGB Conc 32.9 g/dl (31.0-37.0); Mean Corpuscular Hemoglobin 27.7 pg (25.0-35.0); Mean Corpuscular Volume 84 fL (80-100); Monocytes # (Auto) 0.2 Thou/mm3 (0.0-0.8); Monocytes % (Auto) 2 % (0-12); Neutrophils # (Auto) 6.8 Thou/mm3 (1.8-7.7); Neutrophils % (Auto) 85 % (37-80); Nucleated Red Blood Cell % 0 /100 WBC (0); Platelet Count 226 Thou/mm3 (140-440); RDW Standard Deviation 44.5 fL (36.4-46.3); Red Blood Count 4.44 Miln/mm3 (4.00-5.20)
[2024-08-14 08:25] LABS: Lactate (Lactic Acid) 4.5 mMol/L (0.4-2.0)
[2024-08-14 08:29] LABS: B-Type Natriuretic Peptide 120 pg/mL (0-100)
[2024-08-14 08:32] LABS: Alanine Aminotransferase 32 U/L (10-49); Albumin, Serum 4.9 gm/dL (3.4-4.8); Albumin/Globulin Ratio 1.8 (1.2-2.2); Alkaline Phosphatase 91 U/L (46-116); Anion Gap 15 (7-16); Aspartate Amino Transferase 28 U/L (0-34); BUN/Creatinine Ratio 11 Ratio (12-20); Bilirubin,Total 0.6 mg/dL (0.3-1.2); Blood Urea Nitrogen 11 mg/dL (9-23); Calcium 8.9 mg/dL (8.3-10.6); Calcium (Corrected) 8.9 mg/dL (8.5-10.1); Carbon Dioxide 21.7 mMol/L (20.0-31.0); Chloride 105 mMol/L (98-107); Globulin 2.8 gm/dL (2.3-3.5); Glucose 189 mg/dL (74-106); Lipase 26 U/L (12-53); Osmolality,Calculated 287 (275-295); Potassium 3.5 mMol/L (3.4-5.1); Sodium 142 mMol/L (136-145); Total Protein 7.7 gm/dL (5.7-8.2); Troponin I 0.032 ng/mL (0.0-0.045); eGFR > 60 See Note
[2024-08-14 08:34] LABS: Prothrombin Time 10.5 Seconds (9.0-12.2)
[2024-08-14] MEDS: SODIUM CHLORIDE 0.9% 1000 ML 1,000 ML 999 ML IV ×2 (09:33→15:13)
[2024-08-14 11:03] LABS: Reflex Lactate? Y
[2024-08-14 11:22] LABS: Lactic Acid, 3 HR 2.3 mMol/L (0.4-2.0)
[2024-08-14 11:50] LABS: Collection Type, Urine Catheter
[2024-08-14 11:57] LABS: Bilirubin,Urine Negative (Negative); Blood,Urine 2+ (Negative); Clarity,Urine Clear (Clear/Hazy); Color,Urine Lt-Yellow (Lt Yel-Yel); Culture Indicated,Urine Not Indicated; Glucose, Urine Trace (Negative); Hyaline Casts,Urine < 1 /hpf (0-1); Ketones,Urine 1+ (Negative); Leukocyte Esterase,Urine Negative (Negative); Nitrite,Urine Negative (Negative); PH,Urine 6.5 (5.0-7.0); Protein,Urine Negative (Neg - Trace); RBC,Urine 13 /hpf (0-3); Squamous Epithelial Cell,Urine 1 /hpf (0-5); Urobilinogen,Urine Negative mg/dL (0.0-1.0); WBC,Urine 1 /hpf (0-5)
[2024-08-14] MEDS: DiphenhydrAMINE INJ 50 MG/ML VIAL 25 MG IVP (15:21)
--- NOTE | 2024-08-14 15:41 | ESHP_ITS ---
<Statement entered by Agnes Porter MD - 08/14/24 23:08> Patient was seen and examined at bedside. Agree with assessment and plan in this note - Patient's plan and care discussed with my attending, Dr. Bebeto Porter MD Internal Medicine PGY-2 Documentation for date of: 08/14/24 HPI History of Present Illness Chief complaint: Vomiting and diarrhea History of present illness: HPI: Patient is a 69-year-old female with a past medical history significant for hypothyroidism, Nelson's esophagus, gastroparesis presented with a chief complaint of vomiting and diarrhea. Patient stated that since last night she had nonstop vomiting. First described as bile colored then progressed to dark brown. In the preceding week she also had diarrhea, described as 3-4 loose stools per day without any blood or mucus. Denies any associated abdominal pain, fever, sick contacts, recent travel, change in diet, chest pain/pressure or palpitations. Patient has Reglan, Zofran and Compazine suppositories at home all of which were ineffective for treating her nausea and vomiting. Of note patient has vomiting episodes every few months requiring hospitalization at least 1?2 times per year. Patient's stated that her last EGD in April for surveillance of her Nelson's esophagus showed no change. ED course: BP 76/51 [63], pulse 56, RR 20, temp 98.3 F, SpO2 96% on room air Labs significant for NA 142, K3.5, lactic acid 4.5 down trended to 2.3. Urinalysis showed 1+ ketone and 2+ blood. EKG showed sinus rhythm, frequent PVCs, rate 65. QTc is 461 In the ED patient received Reglan 10 Mg IV x 2, Haldol 5 Mg IV x 1, Benadryl 50 Mg IV x 2, normal saline 1 L IV fluid bolus. Patient will be admitted to the floor for intractable nausea and vomiting. Gastroenterology, Dr. Grijalva consulted and closely follow the case. Past medical history: Osteoporosis Hypothyroid Nelson's esophagus Gastroparesis Diverticulosis Prolapse mitral valve Right breast invasive ductal carcinoma status postlumpectomy, radiation and hormonal therapy?in remission Medication list: Reglan Zofran Compazine Past surgical history: Double inguinal hernia repair 1959 Garcia fundoplication and hiatal hernia repair 2002 Complete thyroidectomy 2004 Toupee fundoplication and hernia repair complicated by vagus nerve damage 2016 G-tube placement 2016 with removal in 2017 Cholecystectomy 2016 Pyloroplasty 2016 Right breast lumpectomy 2022 Allergies: Tetracyclines?warts Social history: 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 Has 3 kids Tobacco use: Denies ETHO use: Denies Illicit drug use: Denies Social History Note: lives alone. Ambulates without any assistive devices and carry out all ADLs independently Family History: Diabetes?sister and aunt Review of Systems Review of Systems Narrative Review of Systems: GENERAL: Denies fever/chills or diaphoresis. HEENT: Denies headaches or visual changes. Denies discharge. Neuro: Denies unusual weakness or difficulty speaking. CARDIO: As above PULM: Denies SOB, coughing or wheezing. GI: As above URO: Denies burning/itching/pain/urinary changes. MSK/EXT/SKIN: Denies joint/skeletal/muscle pain, issues/changes in upper or lower extremities, itchiness, or superficial pain. PSYCH: Cooperative, pleasant mood & affect. The rest of the review of systems is otherwise negative. Past Medical History Past Medical History Comments PMH COMMENT: Past medical history: Osteoporosis Hypothyroid Nelson's esophagus Gastroparesis Diverticulosis Prolapse mitral valve Right breast invasive ductal carcinoma status postlumpectomy, radiation and hormonal therapy?in remission Medication list: Exam18azine Past surgical history: Double inguinal hernia repair 1960 Garcia fundoplication and hiatal hernia repair 2002 Complete thyroidectomy 2004 Toupee fundoplication and hernia repair complicated by vagus nerve damage 2016 G-tube placement 2016 with removal in 2017 Cholecystectomy 2016 Pyloroplasty 2016 Right breast lumpectomy 2022 Allergies: Tetracyclines?warts Social history: 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 Has 3 kids Tobacco use: Denies ETHO use: Denies Illicit drug use: Denies Social History Note: lives alone. Ambulates without any assistive devices and carry out all ADLs independently Family History: Diabetes?sister and aunt Exam Vital Signs Temp Pulse Resp BP Pulse Ox O2 Del Method 98.6 F 61 16 153/76 H 100 Room Air 08/14/24 12:02 08/14/24 15:27 08/14/24 15:27 08/14/24 15:27 08/14/24 15:27 08/14/24 15:27 Narrative Exam Constitutional Alert, oriented x 3 and somnolent. Elderly female HEENT Vision grossly intact. Patent nares. Trachea midline Respiratory Chest normal on inspection and clear auscultation bilaterally Cardiovascular S1 and S2 audible, RRR. No murmurs carotid bruit. No gross JVD. Abdominal Soft and non tender to palpation in all quadrants. BS + Genitourinary No bladder tenderness, no flank pain. Normal to palpation Musculoskeletal Extremities tone within normal limits. No LE edema. Neurological CN II - XII grossly intact. Extremity motor and sensation grossly intact. Skin Warm, dry and intact. No apparent lesions. Psychiatric Patient has good affect, is cooperative Results: Labs 08/15/24 04:37 08/15/24 04:37 Labs: Short CBC 08/14/24 Range/Units 07:50 WBC 8.0 (3.6-11.0) Thou/mm3 Hgb 12.3 (12.0-16.0) g/dL Hct 37.4 (36.0-46.0) % Plt Count 226 (140-440) Thou/mm3 BMP 08/14/24 07:50 Sodium 142 Potassium 3.5 Chloride 105 Carbon Dioxide 21.7 BUN 11 Creatinine 1.0 Glucose 189 H Calcium 8.9 Cardiac Enzymes 08/14/24 Range/Units 07:50 Troponin I 0.032 (0.0-0.045) ng/mL Liver Function 08/14/24 Range/Units 07:50 Total Bilirubin 0.6 (0.3-1.2) mg/dL AST 28 (0-34) U/L ALT 32 (10-49) U/L Alkaline Phosphatase 91 (46-116) U/L Albumin 4.9 H (3.4-4.8) gm/dL Urine 08/14/24 Range/Units 11:40 Urine Color Lt-Yellow (Lt Yel-Yel) Urine Clarity Clear (Clear/Hazy) Urine pH 6.5 (5.0-7.0) Ur Specific [place] 1.020 (1.001-1.035) Urine Protein Negative (Neg - Trace) Urine Glucose (UA) Trace (Negative) Quality Measures Quality Measures none Advance care planning discussed with:: patient Medications Home Medications and Allergies Home Medications ?Medication ?Instructions ?Recorded ?Confirmed ?Type famotidine 20 mg tablet (Pepcid) 20 mg PO QDAY PRN david sea and 01/02/24 08/15/24 History vomiting gabapentin 100 mg capsule 100 mg PO TID 01/02/2408/15 History levothyroxine 112 mcg tablet 112 mcg PO QDAY 01/02/24 08/15/24 History omeprazole 20 mg tablet,delayed 20 mg PO QDAY PRN naus ea and 01/02/24 08/15/24 History release vomiting ondansetron 4 mg disintegrating 4 mg PO Q6H PRN Nausea 01/02/24 08/15/24 History tablet tamoxifen 20 mg tablet 20 mg PO QDAY 01/02/2408/15 History levothyroxine 150 mcg tablet 150 mcg PO QDAY 08/15/24 08/15/24 History Allergies Allergy/AdvReac Type Severity Reaction Status Date / Time tetracycline Allergy Severe WELTS / Verified 08/15/24 01:56 SWELLING Visit Medications Sodium Chloride (Ns) 1,000 mls @ 200 mls/hr IV .Q5H JOSE Stop: 09/13/24 07:29 Last Infusion: 08/14/24 09:30 Dose: Infused Sodium Chloride (Ns) 1,000 mls @ 999 mls/hr IV .Q1H1M ONE Stop: 08/14/24 16:11 Last Admin: 08/14/24 15:13 Dose: 999 mls/hr Discontinued Medications Diphenhydramine HCl (Diphenhydramine Inj 50 Mg/Ml Vial) 25 mg IV X1 ONE Stop: 08/14/24 07:21 Last Admin: 08/14/24 07:34 Dose: 25 mg Diphenhydramine HCl (Diphenhydramine Inj 50 Mg/Ml Vial) 25 mg IVP X1 ONE Stop: 08/14/24 14:39 Last Admin: 08/14/24 15:21 Dose: 25 mg Haloperidol Lactate (Haloperidol Lact Inj 5 Mg/Ml Vial) 2 mg IV X1 ONE Stop: 08/14/24 07:20 Last Admin: 08/14/24 07:34 Dose: 2 mg Haloperidol Lactate (Haloperidol Lact Inj 5 Mg/Ml Vial) 2 mg IV X1 ONE Stop: 08/14/24 14:39 Last Admin: 08/14/24 15:20 Dose: Not Given Sodium Chloride (Ns) 1,000 mls @ 999 mls/hr IV .Q1H1M ONE Stop: 08/14/24 10:30 Last Infusion: 08/14/24 11:59 Dose: Infused Metoclopramide HCl (Metoclopramide Inj 5 Mg/Ml Vial 2 Ml) 10 mg IVP X1 ONE; Protocol Stop: 08/14/24 07:18 Last Admin: 08/14/24 07:33 Dose: 10 mg Metoclopramide HCl (Metoclopramide Inj 5 Mg/Ml Vial 2 Ml) 10 mg IVP X1 ONE; Protocol Stop: 08/14/24 14:39 Last Admin: 08/14/24 15:13 Dose: 10 mg Assessment & Plan Plan Patient is a 69-year-old female with a past medical history significant for hypothyroidism, Nelson's esophagus, gastroparesis presented with a chief complaint of vomiting and diarrhea. Patient will be admitted to the floor for intractable nausea and vomiting. Intractable nausea and vomiting Acute diarrhea History of gastroparesis s/p vagus nerve damage neck History of Nelson's esophagus DDx: Gastroparesis, viral gastroenteritis, peptic ulcer disease Patient presented with numerous episodes of bile colored vomiting. On exam patient's somnolent but nontender to palpation in the abdomen. Plan: ? N.p.o. for now ? Follow-up screening ? Metoclopramide 10 Mg IV every 6 hourly scheduled ? Ondansetron 4 Mg IV Q6 hourly scheduled ? Pantoprazole 40 Mg IV daily scheduled ? Account Review Specialist, Dr. Grijalva consulted. Appreciate recommendations History of hypothyroidism Home medication levothyroxine 150 mcg p.o. daily Plan: ? TSH, free T4 ordered ? Started on levothyroxine 50 mcg IV daily from tomorrow History of osteoporosis History of right breast invasive ductal carcinoma status post lumpectomy, radiation and hormonal therapy?in remission Patient had right breast lumpectomy in 2022 following to be invasive ductal carcinoma. Which was followed by 20 sessions of radiotherapy and hormonal treatment with tamoxifen. Health maintenance: Disposition: IV antiemetics. GI consult Diet: N.p.o. Lines: pIVs GI Prophylaxis: Pantoprazole Thrombo Prophylaxis: SCDs Code status: FULL CODE Plan of care discussed with Attending Dr. Bebeto Rodrigues MD PGY 1 Disclaimer: This note was dictated by speech recognition. Minor errors in detective private eye may be present due to voice recognition software. Attending Provider Attestation/Addendum I have discussed and was present for the essential components of the history, physical examination, diagnosis, and treatment plan with the resident. I agree with the patient's care as documented by the resident and amended herein by me. Kaden Tate DO. Although this document has been carefully reviewed, there may still be some phonetic and other typographical errors. These errors are purely grammatical due to imperfections in the software program and should not be construed in any way to compromise the substance of the patient's medical care during this visit.
[2024-08-14] MEDS: ONDANSETRON INJ 2 MG/ML INJ 2 ML 4 MG IV ×2 (17:11→22:14)
[2024-08-14] MEDS: PANTOPRAZOLE INJ 40 MG VIAL IVP (17:11)
[2024-08-14] MEDS: RINGERS LACTATED IV (17:12)
[2024-08-14] MEDS: MULTIVITAMIN IV (17:12)
[2024-08-14] MEDS: FOLIC ACID INJ 1 MG/0.2 ML IVP (17:12)
--- NOTE | 2024-08-14 19:13 | PD.IMCONS ---
HPI Data of Consult Requesting Physician: Ottoniel Tate DO Primary Care Provider: Vania Hernández MD Consult Narrative Reason for consult: Nausea vomiting History of present illness: 69-year-old female brought in by the ambulance to the hospital emergency room with persistent nausea vomiting She has a history of Garcia fundoplication 2016 with vagotomy Nelson's esophagus osteoporosis osteopenia placement of a gastrostomy jejunostomy tube 2016 taken out in 2017 cholecystectomy 2017 pyloroplasty in 2015 She had a right breast lumpectomy right upper inner quadrant in [address] Pandey in [place] and a sentinel lymph node biopsy currently on tamoxifen since then and followed by our local oncology group She does have a history of gastroparesis cc:: cc: Ottoniel Tate DO Review of Systems Review of Systems Systems Reviewed: All systems reviewed, normal except as documented Past Medical History Surgical History OTHER SURGICAL HX: As in the history of present illness Meds Home Medications and Allergies Home Medications ?Medication ?Instructions ?Recorded ?Confirmed ?Type famotidine 20 mg tablet (Pepcid) 20 mg PO QDAY 01/02/24 01/02/24 History gabapentin 100 mg capsule 100 mg PO TID 01/02/24 01/02/24 History levothyroxine 112 mcg tablet 112 mcg PO QDAY 01/02/24 01/02/24 History omeprazole 20 mg tablet,delayed 20 mg PO QDAY 01/02/24 01/02/24 History release ondansetron 4 mg disintegrating 4 mg PO Q6H PRN Nausea 01/02/24 01/02/24 History tablet tamoxifen 20 mg tablet 20 mg PO QDAY 01/02/24 01/02/24 History Allergies Allergy/AdvReac Type Severity Reaction Status Date / Time tetracycline Allergy Severe WELTS / Verified 01/02/24 07:56 SWELLING Exam Vital Signs Temp Pulse Resp BP Pulse Ox O2 Del Method 98.6 F 45 L 16 123/68 97 Room Air 08/14/24 18:00 08/14/24 19:00 08/14/24 19:00 08/14/24 18:00 08/14/24 18:00 08/14/24 18:00 Constitutional Comments: Chronically ill-appearing Routine Respiratory Exam Comments: Normal to auscultation Routine Abdominal Exam Comments: Soft nontender Results Labs 08/14/24 07:50 08/14/24 07:50 Labs: Short CBC 08/14/24 Range/Units 07:50 WBC 8.0 (3.6-11.0) Thou/mm3 Hgb 12.3 (12.0-16.0) g/dL Hct 37.4 (36.0-46.0) % Plt Count 226 (140-440) Thou/mm3 BMP 08/14/24 07:50 Sodium 142 Potassium 3.5 Chloride 105 Carbon Dioxide 21.7 BUN 11 Creatinine 1.0 Glucose 189 H Calcium 8.9 Cardiac Enzymes 08/14/24 Range/Units 07:50 Troponin I 0.032 (0.0-0.045) ng/mL Liver Function 08/14/24 Range/Units 07:50 Total Bilirubin 0.6 (0.3-1.2) mg/dL AST 28 (0-34) U/L ALT 32 (10-49) U/L Alkaline Phosphatase 91 (46-116) U/L Albumin 4.9 H (3.4-4.8) gm/dL Urine 08/14/24 Range/Units 11:40 Urine Color Lt-Yellow (Lt Yel-Yel) Urine Clarity Clear (Clear/Hazy) Urine pH 6.5 (5.0-7.0) Ur Specific [place] 1.020 (1.001-1.035) Urine Protein Negative (Neg - Trace) Urine Glucose (UA) Trace (Negative) Assessment and Plan Additional Assessment & Plan Additional Plan: # Nausea vomiting persistent Plan N.p.o. Antiemetics IV Consent obtained for fiberoptic esophagogastroduodenoscopy with possible biopsy possible therapeutic intervention for tomorrow Patient's nausea vomiting is somewhat better she can have clear liquid diet till 10 AM tomorrow then n.p.o. except p.o. meds Other medical problems include History of G/J tube placement 2016 removal in 2017 cholecystectomy 2017 Garcia fundoplication with low-carb in 2015 along with pyloroplasty Nelson's esophagus Right lumpectomy of the right breast right upper inner quadrant with sentinel lymph node biopsy 2022 followed by tamoxifen treatment Clinical stage 1A Thank you very much for the opportunity to participate in the care of this patient
--- NOTE | 2024-08-14 19:30 | PC.NURSE ---
seen and examined by Dr. Grijalva.
[2024-08-14 21:00] LABS: Hematocrit 31.8 % (36.0-46.0); Hemoglobin 10.5 g/dL (12.0-16.0)
[2024-08-14 22:26] LABS: Amphetamine/Methamp Scrn,U Negative (Negative); Barbiturate Screen,Urine Negative (Negative); Benzodiazepines Screen,Urine Negative (Negative); Benzoylecgonine Screen, Ur Negative (Negative); Opiate Screen,Urine Negative (Negative); THC Screen,Urine Negative (Negative)
[2024-08-14 22:58] LABS: Fentanyl Screen,Urine Negative (Negative)
[2024-08-15] VITALS (22 sets, daily range): BP systolic 92–139; BP diastolic 48–77; PULSE 45–72; RESP 12–94; TEMP 36.1–37.1; O2SAT 94–99
[2024-08-15] MEDS: RINGERS LACTATED 1000 ML 1,000 ML 120 ML IV ×3 (01:42→23:21)
[2024-08-15] MEDS: METOCLOPRAMIDE INJ 5 MG/ML VIAL 2 ML 10 MG IVP ×3 (03:06→15:29)
[2024-08-15] MEDS: ONDANSETRON INJ 2 MG/ML INJ 2 ML 4 MG IV ×4 (03:56→23:20)
[2024-08-15] MEDS: LEVOTHYROXINE INJ 100 mCg VIAL 50 MCG IV (05:13)
[2024-08-15 05:58] LABS: Basophils % (Auto) 1 % (0-2.5); Eosinophils % (Auto) 1 % (0-10); Hematocrit 29.5 % (36.0-46.0); Hemoglobin 9.7 g/dL (12.0-16.0); Immature Granulocytes % (Auto) 0 % (0-0); Immature Granulocytes Auto 0.02 Thou/mm3 (0.00-0.00); Lymphocytes # (Auto) 2.1 Thou/mm3 (1.0-4.8); Lymphocytes % (Auto) 32 % (10-50); Mean Corpuscular HGB Conc 32.9 g/dl (31.0-37.0); Mean Corpuscular Volume 85 fL (80-100); Monocytes # (Auto) 0.6 Thou/mm3 (0.0-0.8); Monocytes % (Auto) 8 % (0-12); Neutrophils # (Auto) 3.8 Thou/mm3 (1.8-7.7); Neutrophils % (Auto) 58 % (37-80); Nucleated Red Blood Cell % 0 /100 WBC (0); Platelet Count 170 Thou/mm3 (140-440); Red Blood Count 3.47 Miln/mm3 (4.00-5.20); White Blood Count 6.6 Thou/mm3 (3.6-11.0)
--- NOTE | 2024-08-15 06:00 | EKG_ITS ---
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 : 1955 Requested By: Juan Rodrigues Order Number: [id number] Reading MD: Juan Rodrigues Measurements Intervals [place] Rate: 54 P: 33 AL: 150 QRS: -7 QRSD: 101 T: 5 QT: 448 QTc: 428 Interpretive Statements SINUS BRADYCARDIA LOW QRS VOLTAGE IN PRECORDIAL LEADS POSSIBLE ANTERIOR MYOCARDIAL INFARCTION , OF INDETERMINATE AGE Compared to ECG 08/14/2024 08:37:16 Low QRS voltage now present Myocardial infarct finding now present Sinus rhythm no longer present Ventricular premature complex(es) no longer present T-wave abnormality no longer present /store/S0/[id number].pdf
[2024-08-15 06:23] LABS: Alanine Aminotransferase 17 U/L (10-49); Albumin, Serum 3.4 gm/dL (3.4-4.8); Albumin/Globulin Ratio 1.7 (1.2-2.2); Alkaline Phosphatase 62 U/L (46-116); Anion Gap 11 (7-16); Aspartate Amino Transferase 19 U/L (0-34); BUN/Creatinine Ratio 10 Ratio (12-20); Bilirubin,Total 0.5 mg/dL (0.3-1.2); Blood Urea Nitrogen 9 mg/dL (9-23); Calcium (Corrected) 7.5 mg/dL (8.5-10.1); Carbon Dioxide 22.4 mMol/L (20.0-31.0); Cardiac Risk Estimate 3.4 RATIO (3.7-5.6); Chloride 112 mMol/L (98-107); Cholesterol 178 mg/dL (132-200); Creatinine (Component) 0.9 mg/dL (0.6-1.3); Estimated Creatinine Clearance 65.6 mL/min (>60); Free T4 (Free Thyroxine) 0.75 ng/dL (0.89-1.76); Glucose 109 mg/dL (74-106); HDL Cholesterol 52 mg/dL (40-60); LDL Cholesterol,Calculated 111 mg/dL (0-130); Magnesium 1.7 mg/dL (1.6-2.6); Osmolality,Calculated 288 (275-295); Phosphorous 2.1 mg/dL (2.4-5.1); Potassium 3.6 mMol/L (3.4-5.1); Sodium 145 mMol/L (136-145); Thyroid Stimulating Hormone 11.99 uIU/mL (0.55-4.78); Total Protein 5.4 gm/dL (5.7-8.2); Triglycerides 75 mg/dL (30-150); eGFR > 60 See Note
[2024-08-15 06:24] LABS: Glucose Estimated Average 117 mg/dL (80-131); Hemoglobin A1C 5.7 % Hgb (4.8-6.0)
--- NOTE | 2024-08-15 07:41 | EKG_ITS ---
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
[2024-08-15 08:07] LABS: Lactate (Lactic Acid) 2.3 mMol/L (0.4-2.0)
[2024-08-15] MEDS: POTASSIUM CHL 10 mEq IVPB 10 MEQ/100 ML BAG 100 MEQ IV ×4 (08:46→15:29)
[2024-08-15] MEDS: PANTOPRAZOLE INJ 40 MG VIAL IVP (08:47)
--- NOTE | 2024-08-15 10:42 | PC.SS ---
Follow up note: EGD today. Pt will return home upon dc.
--- NOTE | 2024-08-15 10:58 | CHAP ---
Prayed with patient about her upcoming procedure.
[2024-08-15 11:04] LABS: Reflex Lactate? Y
--- NOTE | 2024-08-15 11:31 | ESPR_ITS ---
Documentation for date of: 08/15/24 Subjective Subjective Interval history: Patient was seen and examined at bedside. She reported today. She tolerated her clear liquid diet well. At this time she is n.p.o. for EGD today by Dr. Grijalva. Patient denied any episodes of vomiting since last night. Vitally patient is stable except her blood pressure in the soft side 97/54, pulse rate of 55, could be related to her hypothyroidism. Her hemoglobin stable at 9.7, other labs within normal limits. We ordered for the patient lactic acid increased up to 2.7 from 2.4 yesterday. We ordered for the patient FOB at bedside pending results, her TSH came back 11.9, patient was started yesterday on levothyroxine 50 mcg. 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 Objective Labs 08/15/24 04:37 08/15/24 04:37 Labs: Laboratory Results - last 24 hr 08/14/24 08/14/24 08/14/24 11:40 20:12 20:35 WBC RBC Hgb 10.5 L Hct 31.8 L MCV MCH MCHC RDW Std Deviation Plt Count Neut % (Auto) Lymph % (Auto) [place] % (Auto) Eos % (Auto) Baso % (Auto) Neut # (Auto) Lymph # (Auto) [place] # (Auto) Eos # (Auto) Baso # (Auto) Immature Gran # (Auto) Absolute Nucleated RBC Immature Gran % Nucleated RBC % Sodium Potassium Chloride Carbon Dioxide Anion Gap BUN Creatinine Estim Creat Clear Calc eGFR BUN/Creatinine Ratio Glucose Estimated Ave Glu mg/dL Hemoglobin A1c Calculated Osmolality Lactic Acid Calcium Corrected Calcium Phosphorus Magnesium Total Bilirubin AST ALT Alkaline Phosphatase Total Protein Albumin Globulin Albumin/Globulin Ratio Triglycerides Cholesterol LDL Cholesterol, Calc HDL Cholesterol Cholesterol/HDL Ratio TSH Free T4 Ur Collection Type Catheter Urine Color Lt-Yellow Urine Clarity Clear Urine pH 6.5 Ur Specific [place] 1.020 Urine Protein Negative Urine Glucose (UA) Trace Urine Ketones 1+ A Urine Blood 2+ A Urine Nitrite Negative Urine Bilirubin Negative Urine Urobilinogen (Auto) Negative Ur Leukocyte Esterase Negative Urine RBC 13 H Urine WBC 1 Ur Squamous Epith Cells 1 Urine Bacteria None Hyaline Casts < 1 Ur Culture Indicated? Not Indicated Urine Opiates Screen Negative Urine Fentanyl Screen Negative Ur Barbiturates Screen Negative U Amphetamin/Meth Scrn Negative U Benzodiazepines Scrn Negative U Cocaine Metab Screen Negative U Marijuana (THC) Screen Negative 08/15/24 08/15/24 04:37 07:59 WBC 6.6 RBC 3.47 L Hgb 9.7 L Hct 29.5 L MCV 85 MCH 28.0 MCHC 32.9 RDW Std Deviation 46.0 Plt Count 170 D Neut % (Auto) 58 Lymph % (Auto) 32 [place] % (Auto) 8 Eos % (Auto) 1 Baso % (Auto) 1 Neut # (Auto) 3.8 Lymph # (Auto) 2.1 [place] # (Auto) 0.6 Eos # (Auto) 0.0 Baso # (Auto) 0.0 Immature Gran # (Auto) 0.02 H Absolute Nucleated RBC 0.00 Immature Gran % 0 Nucleated RBC % 0 Sodium 145 Potassium 3.6 Chloride 112 H Carbon Dioxide 22.4 Anion Gap 11 BUN 9 Creatinine 0.9 Estim Creat Clear Calc 65.6 eGFR > 60 BUN/Creatinine Ratio 10 L Glucose [address] Glu mg/dL 117 Hemoglobin A1c 5.7 Calculated Osmolality 288 Lactic Acid 2.3 H Calcium 7.0 L D Corrected Calcium 7.5 L Phosphorus 2.1 L Magnesium 1.7 Total Bilirubin 0.5 AST 19 ALT 17 Alkaline Phosphatase 62 D Total Protein 5.4 L Albumin 3.4 D Globulin 2.0 L Albumin/Globulin Ratio 1.7 Triglycerides 75 Cholesterol 178 LDL Cholesterol, Calc 111 HDL Cholesterol 52 Cholesterol/HDL Ratio 3.4 L TSH 11.99 H Free T4 0.75 L Ur Collection Type Urine Color Urine Clarity Urine pH Ur Specific [place] Urine Protein Urine Glucose (UA) Urine Ketones Urine Blood Urine Nitrite Urine Bilirubin Urine Urobilinogen (Auto) Ur Leukocyte Esterase Urine RBC Urine WBC Ur Squamous Epith Cells Urine Bacteria Hyaline Casts Ur Culture Indicated? Urine Opiates Screen Urine Fentanyl Screen Ur Barbiturates Screen U Amphetamin/Meth Scrn U Benzodiazepines Scrn U Cocaine Metab Screen U Marijuana (THC) Screen Quality Measures Quality Measures none Advance care planning discussed with:: patient Assessment & Plan Assessment Current Active Medications: Generic Name Dose Route Start Last Admin Trade Name Freq PRN Reason Stop Dose Admin Acetaminophen 650 mg 08/14/24 15:41 Acetaminophen Supp 650 Mg Supp IA 09/13/24 15:40 Q6HR PRN Fever > 100.3 Lactated Ringer's 1,000 mls @ 120 mls/hr 08/15/24 00:55 08/15/24 08:47 Lactated Ringers IV 09/14/24 00:54 120 mls/hr .[id number] JOSE Administration Potassium Chloride 10 meq in 100 mls @ 100 mls/hr 08/15/24 07:45 08/15/24 10:18 Kcl Ivpb IV 08/15/24 11:44 100 mls/hr Q1H JOSE Administration Levothyroxine Sodium 75 mcg 08/16/24 09:00 Levothyroxine Inj 100 Mcg Vial IV 09/15/24 08:59 DAILY JOSE Metoclopramide HCl 10 mg 08/14/24 20:45 08/15/24 08:46 Metoclopramide Inj 5 Mg/Ml Vial 2 Ml IVP 09/13/24 20:44 10 mg Q6H JOSE Administration Protocol Ondansetron HCl 4 mg 08/14/24 16:00 08/15/24 10:19 Ondansetron Inj 2 Mg/Ml Inj 2 Ml IV 09/13/24 15:59 4 mg Q6H JOSE Administration Protocol Pantoprazole Sodium 40 mg 08/14/24 16:15 08/15/24 08:47 Pantoprazole Inj 40 Mg Vial IVP 09/13/24 16:14 40 mg QDAY JOSE Administration Plan Summary:Patient is a 69-year-old female with a past medical history significant for hypothyroidism, Nelson's esophagus, gastroparesis presented with a chief complaint of vomiting and diarrhea. Patient will be admitted to the floor for intractable nausea and vomiting. Intractable nausea and vomiting Acute diarrhea History of gastroparesis s/p vagus nerve damage neck History of Nelson's esophagus DDx: Gastroparesis, viral gastroenteritis, peptic ulcer disease Patient presented with numerous episodes of bile colored vomiting. On exam patient's somnolent but nontender to palpation in the abdomen. No vomiting since last night, tolerated breakfast well. Plan: ? N.p.o. for now for EGD today by Dr. Grijalva ? Metoclopramide 10 Mg IV every 6 hourly scheduled ? Ondansetron 4 Mg IV Q6 hourly scheduled ? Pantoprazole 40 Mg IV daily scheduled ? Oil Well Shooter, Dr. Grijalva consulted. Appreciate recommendations History of hypothyroidism Home medication levothyroxine 150 mcg p.o. daily Plan: ? TSH, free T4 ordered ? Give another dose of levothyroxine 25 mcg IV today ? Start the patient on levothyroxine 75 mcg IV every morning ? Morning TSH level and free T4 History of osteoporosis History of right breast invasive ductal carcinoma status post lumpectomy, radiation and hormonal therapy?in remission Patient had right breast lumpectomy in 2022 following to be invasive ductal carcinoma. Which was followed by 20 sessions of radiotherapy and hormonal treatment with tamoxifen. Health maintenance: Disposition: IV antiemetics. Pending EGD results Diet: N.p.o. Lines: pIVs GI Prophylaxis: Pantoprazole Thrombo Prophylaxis: SCDs Code status: FULL CODE - Patient's plan and care discussed with my attending, Dr. Bebeto Porter MD Internal Medicine PGY-2 Attending Provider Attestation/Addendum I have discussed and was present for the essential components of the history, physical examination, diagnosis, and treatment plan with the resident. I agree with the patient's care as documented by the resident and amended herein by me. Kaden Tate DO. Patient seen and evaluated this AM. No acute events overnight, patient a bit bradycardic, blood pressure soft, considering low T4, will start IV levothyroxine and reassess tomorrow. Patient remains n.p.o., EGD scheduled later today, appreciate gastroenterology recommendations. Although this document has been carefully reviewed, there may still be some phonetic and other typographical errors. These errors are purely grammatical due to imperfections in the software program and should not be construed in any way to compromise the substance of the patient's medical care during this visit.
--- NOTE | 2024-08-15 11:32 | PC.SS ---
SS met with patient regarding her d/c plan. Pt is alert/oriented. Pt was admitted for Intractable Nausea And Vomiting. Pt confirmed demographic and contact information is correct on facesheet. Pt resides alone. Pt ambulates independently without assistance or DME. Pt is ok with all ADLs. Patient?s pharmacy of choice is [facility] in [place]. Pt named her daughter, Ne Smith medical decision maker if she is unable. Patient?s choice is to return home upon d/c. Pt states she has advance directive at home but has not been completed. Pt states she is not diabetic and is not on dialysis. Pt states her friend can provide transportation. Pt followed up with PCP 3 weeks ago. D/C plan: Return home Next of Kin: Ne Smith, daughter, phone# [phone] PCP: Dr. Vania Hernández Address: Correct on facesheet
[2024-08-15 11:51] LABS: Lactic Acid, 3 HR 2.7 mMol/L (0.4-2.0)
[2024-08-15] MEDS: LEVOTHYROXINE INJ 100 mCg VIAL 25 MCG IV (12:46)
--- NOTE | 2024-08-15 13:07 | PC.PT ---
PT eval only. Patient is xI and safe to ambulate to the bathroom and in the halls with no DME or staff assist. RN made aware.
--- NOTE | 2024-08-15 20:44 | PC.NURSE ---
to endo per per bettie, saline locked iv. Accompanied by endo staff.
--- NOTE | 2024-08-15 21:53 | SUR.PHASEI ---
2155 Patient arrived to recovery resting comfortably in [facility], on oxygen 3L via nasal cannula, breathing unlabored, vital signs stable, denies pain and nausea, report received from Claudia DONNELLY
--- NOTE | 2024-08-15 22:12 | SUR.PHASEI ---
patient drinking water; tolerating well
--- NOTE | 2024-08-15 22:14 | SUR.PHASEI ---
2214 Report given to Sherry DONNELLY, patient meets discharge criteria from recovery, awake and alert, breathing unlabored, vital signs stable, denies pain and nausea
--- NOTE | 2024-08-15 22:29 | SUR.PHASEI ---
2229 Patient transported via gurney to room 352 without incident
[2024-08-16] VITALS: BP 103/61; PULSE 52; PULSE 54; RESP 16; TEMP 36.7; O2SAT 94
[2024-08-16] MEDS: METOCLOPRAMIDE INJ 5 MG/ML VIAL 2 ML 10 MG IVP (02:28)
[2024-08-16] MEDS: ONDANSETRON INJ 2 MG/ML INJ 2 ML 4 MG IV (03:48)
[2024-08-16 04:00] VITALS: BP 132/72; PULSE 51; PULSE 60; RESP 18; TEMP 36.8; O2SAT 95
[2024-08-16 05:50] LABS: Basophils % (Auto) 1 % (0-2.5); Eosinophils % (Auto) 2 % (0-10); Hemoglobin 9.7 g/dL (12.0-16.0); Lymphocytes % (Auto) 34 % (10-50); Mean Corpuscular HGB Conc 32.3 g/dl (31.0-37.0); Mean Corpuscular Hemoglobin 28.5 pg (25.0-35.0); Mean Corpuscular Volume 88 fL (80-100); Monocytes % (Auto) 8 % (0-12); Neutrophils % (Auto) 55 % (37-80); Platelet Count 147 Thou/mm3 (140-440); RDW Standard Deviation 48.5 fL (36.4-46.3); White Blood Count 4.9 Thou/mm3 (3.6-11.0)
[2024-08-16 05:51] LABS: Eosinophils # (Auto) 0.1 Thou/mm3 (0.0-0.5); Immature Granulocytes % (Auto) 0 % (0-0); Lymphocytes # (Auto) 1.7 Thou/mm3 (1.0-4.8); Monocytes # (Auto) 0.4 Thou/mm3 (0.0-0.8); Neutrophils # (Auto) 2.7 Thou/mm3 (1.8-7.7); Nucleated Red Blood Cell % 0 /100 WBC (0)
[2024-08-16 06:30] LABS: Alanine Aminotransferase 19 U/L (10-49); Albumin, Serum 3.3 gm/dL (3.4-4.8); Albumin/Globulin Ratio 1.7 (1.2-2.2); Alkaline Phosphatase 56 U/L (46-116); Anion Gap 8 (7-16); Aspartate Amino Transferase 18 U/L (0-34); BUN/Creatinine Ratio 7 Ratio (12-20); Bilirubin,Total 0.4 mg/dL (0.3-1.2); Blood Urea Nitrogen 6 mg/dL (9-23); Calcium 7.5 mg/dL (8.3-10.6); Calcium (Corrected) 8.1 mg/dL (8.5-10.1); Carbon Dioxide 24.6 mMol/L (20.0-31.0); Chloride 108 mMol/L (98-107); Creatinine (Component) 0.9 mg/dL (0.6-1.3); Estimated Creatinine Clearance 65.6 mL/min (>60); Glucose 103 mg/dL (74-106); Magnesium 1.7 mg/dL (1.6-2.6); Osmolality,Calculated 278 (275-295); Phosphorous 2.1 mg/dL (2.4-5.1); Potassium 3.5 mMol/L (3.4-5.1); Sodium 141 mMol/L (136-145); Thyroid Stimulating Hormone 28.18 uIU/mL (0.55-4.78); Total Protein 5.3 gm/dL (5.7-8.2); eGFR > 60 See Note
[2024-08-16 07:39] VITALS: PULSE 54; RESP 18; RESP 98
[2024-08-16 08:00] VITALS: BP 122/58; PULSE 50; PULSE 51; RESP 17; TEMP 36.4; O2SAT 95
[2024-08-16] MEDS: PANTOPRAZOLE 40 MG TABLET PO (10:23)
[2024-08-16] MEDS: METOCLOPRAMIDE 5 MG TABLET 10 MG PO (10:23)
[2024-08-16] MEDS: NAPH,KPH MBDB 1 PACKET (1.5 GM) PO (10:23)
[2024-08-16] MEDS: LEVOTHYROXINE SODIUM 125 MCG, LEVOTHYROXINE SODIUM 25 MCG 150 MCG PO (10:23)
[2024-08-16] MEDS: CALCIUM CARBONATE 600 MG TABLET PO (10:25)
--- NOTE | 2024-08-16 11:59 | PC.NURSE ---
Discharge instructions completed. Patient verbalized understanding.
[2024-08-16 12:00] VITALS: BP 125/69; PULSE 50; PULSE 53; RESP 18; TEMP 36.6; O2SAT 97
--- NOTE | 2024-08-16 14:20 | PD.RESDS ---
Planned Discharge Date 08/16/24 DS: Providers Provider Date of admission: 08/14/24 15:41 Primary care physician: Vania Hernández MD Admitting Provider: Ottoniel Tate DO Attending Provider on Admission: Ottoniel Tate DO Consults: 08/14/24 15:49 Consult to Gastroenterology Routine Comment: Vomiting. Gastroparesis, Baretts esophagous Consulting Provider: Marina Grijalva 08/15/24 00:27 Referral Respiratory Therapy Routine Comment: 08/15/24 07:45 Referral Physical Therapy Routine Comment: Physician Instructions: Attending Provider on DC: Ottoniel Tate DO Discharging Provider: Juan Rodrigues MD DS: Diagnosis Problem List Completed Was Problem List Reviewed/Reconciled?: Yes Hospital Course Hospital Course Hospital course: Patient is a 69-year-old female with a past medical history significant for hypothyroidism, Nelson's esophagus, gastroparesis presented with a chief complaint of vomiting and diarrhea. Patient will be admitted to the floor for intractable nausea and vomiting. For patient's intractable nausea and vomiting, she was treated with scheduled metoclopramide 10 Mg IV Q6 hourly and ondansetron 4 Mg IV every 6 hourly. She also underwent EGD which showed esophagitis in lower third of esophagus and diffuse severe inflammation with hemorrhage characterized by congestion in the entire examined stomach. Biopsies were performed. After 2 days of hospitalization patient nausea and vomiting completely subsided with scheduled antiemetics. For patient's hypothyroidism, initially she was unable to tolerate p.o. medication and had to be on levothyroxine 50 mcg IV daily which was increased to 75 mcg IV daily. A TSH was grossly elevated at 11.99 and increased to 28.18. We recommend she gets a repeat TSH and free T4 in 6 weeks after discharge. Upon discharge patient was transitioned back to her home dose of 150 mcg p.o. daily. The rest of patient's labs with exception of TFTs are now returning to her baseline. Patient is now clinically stable and fit for discharge to home. Discharge diagnoses: 1. Intractable nausea and vomiting s/p EGD 08/15/2024?resolved 2. Acute diarrhea?resolved 3. History of gastroparesis s/p vagus nerve damage 4. History of Nelson's esophagus 5. History of hypothyroidism 6. History of osteoporosis 7. History of right breast invasive ductal carcinoma status postlumpectomy, radiation and hormonal therapy?in remission Discharge plan: ? We have started you on a medication metoclopramide for your vomiting. Take 1 tablet as needed up to 4 times a day. ? Continue your home medication levothyroxine 150 mcg p.o. daily, 4 hours before taking any other medication. ? Continue the rest of your home medications as before. ? Follow-up with your primary care doctor for repeat thyroid blood test in 6 weeks. ? Follow-up with your primary care doctor for the results of the biopsies from your endoscopy. ? Follow-up with Dr. Rudi Dr. Film Coater within 2-3 weeks of discharge. - Follow up with your primary care physician within 1 week of discharge. If you do not have a primary care physician, please follow up with the [facility] Residents clinic ([phone]) ? If you experience any new, worsening or persistent symptoms either call your primary doctor, or dial 911 or present to the emergency department. We are grateful to be able to participate in Ms. Foss's care. We wish her the best. Plan of care discussed with Attending Dr. Bebeto Rodrigues MD PGY 1 Disclaimer: This note was dictated by speech recognition. Minor errors in employment advisor may be present due to voice recognition software. Time Spent with Patient Time attestation: Total time spent providing and/or coordinating discharge services: Time spent: Greater than 30 minutes (46) Exam Vital Signs Temp Pulse Resp BP Pulse Ox O2 Del Method O2 Flow Rate 97.9 F 53 L 18 125/69 97 Room Air 3 08/16/24 12:08/16/24 12:08/16/24 12:00 08/16/24 12:08/16/24 12:08/16/24 08:00 08/15/24 22:08 Narrative Exam Constitutional Alert, oriented x 3 and comfortable. Elderly female HEENT Vision grossly intact. Patent nares. Trachea midline Respiratory Chest normal on inspection and clear auscultation bilaterally Cardiovascular S1 and S2 audible, RRR. No murmurs carotid bruit. No gross JVD. Abdominal Soft and non tender to palpation in all quadrants. BS + Genitourinary No bladder tenderness, no flank pain. Normal to palpation Musculoskeletal Extremities tone within normal limits. No LE edema. Neurological CN II - XII grossly intact. Extremity motor and sensation grossly intact. Skin Warm, dry and intact. No apparent lesions. Psychiatric Patient has good affect, is cooperative Discharge Plan Plan Patient Disposition: HOME (Self Care) Patient condition on transfer: Stable and Benefits outweigh risks Care Plan Goals: ? We have started you on a medication metoclopramide for your vomiting. Take 1 tablet as needed up to 4 times a day. ? Continue your home medication levothyroxine 150 mcg p.o. daily, 4 hours before taking any other medication. ? Continue the rest of your home medications as before. ? Follow-up with your primary care doctor for repeat thyroid blood test in 6 weeks. ? Follow-up with your primary care doctor for the results of the biopsies from your endoscopy. ? Follow-up with Dr. Rudi Dr. Film Coater within 2-3 weeks of discharge. - Follow up with your primary care physician within 1 week of discharge. If you do not have a primary care physician, please follow up with the [facility] Residents clinic ([phone]) ? If you experience any new, worsening or persistent symptoms either call your primary doctor, or dial 911 or present to the emergency department. Prescriptions/Referrals Prescriptions/Med Rec: New metoclopramide HCl 10 mg tablet 10 mg PO Q6H PRN (Reason: nausea and vomiting) 14 Days Qty: 56 0RF omeprazole 40 mg capsule,delayed release(DR/EC) 40 mg PO QDAY Qty: 30 0RF Continued famotidine [Pepcid] 20 mg Tablet 20 mg PO QDAY PRN (Reason: nausea and vomiting) gabapentin 100 mg capsule 100 mg PO TID Patient Comments: TAKE 1 CAPSULE BY MOUTH THREE TIMES A DAY FOR 30 DAYS ondansetron 4 mg Tablet,Disintegrating 4 mg PO Q6H PRN (Reason: Nausea) tamoxifen 20 mg tablet 20 mg PO QDAY Patient Comments: TAKE 1 TABLET BY MOUTH EVERY DAY levothyroxine 150 mcg tablet 150 mcg PO QDAY Discontinued levothyroxine 112 mcg tablet 112 mcg PO QDAY Patient Comments: TAKE 1 TABLET BY MOUTH EVERY DAY omeprazole 20 mg Tablet,Delayed Release (Dr/Ec) 20 mg PO QDAY PRN (Reason: nausea and vomiting) Referrals: Marina Grijalva MD [Physician] - Vania Hernández MD [Primary Care Provider] - Patient/Caregiver Discharge Instructions Education Materials: Gastroparesis Print Language: Portuguese Stand Alone Forms: Radha Award Info., Patient Portal Info Letter, Work/Release Restrictions Discharge Order Discharge Orders: Discharge (Routine); Ordered 08/16/24 Ordered By: Juan Rodrigues Quality Discharge Quality Measures VTE prophylaxis Attestestation Attestation I have discussed and was present for the essential components of the discharge history, physical examination, diagnosis, and discharge treatment plan with the resident. I agree with the patient's discharge care as documented by the resident and amended herein by me. Kaden Tate, . The patient understood all discharge instructions, all questions were answered satisfactorily. The patient was instructed to return to the Emergency Department is symptoms worsened or persisted. Patient significantly improved at time of discharge. Significant EGD findings demonstrated esophagitis and gastritis with hemorrhage. Patient discharged on PPI and can continue as needed Pepcid. We did increase the dose of omeprazole to 40 mg daily. Patient will need close follow-up with her primary care physician within 5 to 7 days of discharge for further evaluation. We did restart the patient's levothyroxine 150 mcg daily which will also need close follow-up with her PCP. Patient was stable, afebrile, tolerating p.o. intake at time of discharge home. Although this document has been carefully reviewed, there may still be some phonetic and other typographical errors. These errors are purely grammatical due to imperfections in the software program and should not be construed in any way to compromise the substance of the patient's medical care during this visit.
== END 2024-08-16 12:40 | disposition home or self-care (01) ==
LOC: SERX 14:43 → SERHOLD 16:11 → S3NX 08-15 06:22 → SERHOLD 08-15 10:59
PROVIDERS: Specialist; Student in an Organized Health Care Education/Training Program; Admitting Provider Student in an Organized Health Care Education/Training Program; Emergency Provider Emergency Medicine; PCP Family Medicine; Visit Provider Student in an Organized Health Care Education/Training Program
PROC: (CPT 43239; principal; 2024-08-15 21:30)
DX: K20.81 Other esophagitis with bleeding (principal); Z87.19 Personal history of other diseases of the digestive system; E03.9 Hypothyroidism, unspecified; M81.0 Age-related osteoporosis without current pathological fracture; Z01.810 Encounter for preprocedural cardiovascular examination; K29.71 Gastritis, unspecified, with bleeding; E86.0 Dehydration; E87.20 Acidosis, unspecified; I10 Essential (primary) hypertension; I34.1 Nonrheumatic mitral (valve) prolapse; I49.3 Ventricular premature depolarization; J45.909 Unspecified asthma, uncomplicated; K22.70 Barrett's esophagus without dysplasia; K31.84 Gastroparesis; M19.90 Unspecified osteoarthritis, unspecified site; Z79.810 Long term (current) use of selective estrogen receptor modulators (SERMs); Z79.890 Hormone replacement therapy; Z79.899 Other long term (current) drug therapy; Z83.3 Family history of diabetes mellitus; Z85.3 Personal history of malignant neoplasm of breast; Z86.718 Personal history of other venous thrombosis and embolism; Z90.49 Acquired absence of other specified parts of digestive tract; Z90.89 Acquired absence of other organs; Z93.1 Gastrostomy status; Z98.890 Other specified postprocedural states
CPT/HCPCS: 43239; 36415; 80053; 80061; 80307; 81001; 83036; 83605; 83690; 83735; 83880; 84100; 84439; 84443; 84484; 85014; 85018; 85025; 85610; 93005; 96360; 96361; 96365; 96366; 96374; 96375; 96376; 97161; 99285; G0378; J1200; J1630; J2250; J2405; J2470; J2765; J3010; J3480; J3490; J7030; J7120; A9270

== ENCOUNTER 2024-08-30 14:21 | Outpatient (RCR) | payer BC, SELFPAY ==
--- NOTE | 2024-08-30 16:45 | CTCFLWUP_ITS ---
Patient: MYESHA LAIRD : 1955 Page 2 of 2 FOLLOW UP NOTE DATE OF SERVICE: 08/30/2024 NAME: MYESHA LAIRD ACCOUNT: [id number] : 1955 AGE: 69 INTERVAL HISTORY: Subjective: Chief Complaint Intractable nausea and vomiting with recent hospitalization, vomiting non-stop with low blood pressure History of Present Illness Myesha is a patient with a history of stage one breast cancer, gastroparesis, and multiple gastrointestinal surgeries who presents with recent intractable nausea and vomiting. The patient reports an episode of sudden, uncontrollable vomiting that lasted for hours. She states, I was vomiting non-stop. It happens suddenly and I can't stop. This severe episode led to hospitalization on August 16 due to intractable nausea and vomiting, complicated by hypotension. The patient mentions that during these episodes, her blood pressure becomes very low, necessitating medical intervention. Myesha's medical history is significant for Garcia fundoplication in 2004, which was revised to a Toupet fundoplication in 2016. She reports complications from this procedure, stating, It came undone, and they severed my vagal nerve without telling me. This led to frequent hospitalizations, with the patient reporting, I spent that year in the hospital 42 times. Other relevant surgical history includes vagotomy, gastrostomy-jejunostomy tube placement in 2016 (removed in 2016), cholecystectomy in 2017, and pyloroplasty in 2016. She also has a history of Nelson's esophagus, osteoporosis, and osteopenia. The patient reports that a combination of medications (Reglan, Benadryl, and Haldol) helps to reset and stop the vomiting during these episodes. However, she admits to inconsistent adherence to her thyroid medication, stating, when I'm sick, I don't take it because it makes me sick. She confirms that she is taking her tamoxifen as prescribed for her breast cancer history but may need a refill soon. Myesha also reports taking vitamin D supplements, but only when she doesn't feel sick. Medications and Supplements - Tamoxifen - Patient takes it regularly but needs a refill. - Thyroid medication - Patient doesn't take it when feeling sick due to it making her feel unwell. - Vitamin D - Patient takes it inconsistently, only when not feeling sick. - Reglan, Benadryl, and Haldol cocktail - Given to reset and stop vomiting. - Ondansetron - Taken under the tongue for nausea. Standing prescription. Review of Systems General: Positive for vomiting. Gastrointestinal: Positive for intractable nausea, vomiting. Cardiovascular: Positive for low blood pressure during episodes. Objective: Laboratory, Imaging, and Diagnostic Test Results - Date: 08/16/2024 - Endoscopy: Inflammation noted, no significant bleeding - Previous results: - Thyroid function tests: Abnormal (specific values not provided) ONCOLOGY HISTORY: DIAGNOSIS: Malignant neoplasm of upper-inner quadrant of right female breast [ICD10] C50.211 Stage Ia (pT1a, sN0, cM0), ER positive, IL positive, HER2/yolande, grade 1 invasive ductal carcinoma of the right breast. S/p lumpectomy and sentinel lymph node biopsy (01/21/2023) On tamoxifen since 03/03/2023. History of Nelson's esophagus, history of fundoplication x 2, history of vagotomy. Osteoporosis. The patient is getting Prolia injections from her test evaluator in [place] every 6 months. DATE OF DIAGNOSIS: 12/22/2022 STAGE/TNM: Stage Ia (pT1a, sN0, cM0), ER positive, IL positive, HER2/yolande, grade 1 invasive ductal carcinoma of the right breast. 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 Citracal plus D - 250 mg calcium- 200 unit 1 tab Daily 2. Compazine - 15 mg 3. gabapentin - 100 mg 1 tab Three times a day 4. levothyroxine - 112 mcg/24 h Daily 5. nystatin - 100,000 unit/gram 1 Application twice a day to affected areas 6. Pepcid - 20 mg As needed 7. rabeprazole sodium - 20 mg Daily 8. tamoxifen - 20 mg 1 tab one tab po q daily 9. Zofran - As needed Medications Last Reconciled by Sandy Green MA on 08/30/2024 ALLERGIES: tetracycline HCl REVIEW OF SYSTEMS: A complete 14-point review of systems was performed and is negative except as noted in interval history. PHYSICAL EXAMINATION: VITAL SIGNS: PAIN: 0 - No pain ECOG Performance Status: 0 - Asymptomatic and fully active GENERAL APPEARANCE: Appears well, in no apparent distress, appropriately interactive. HEENT: Normocephalic, no temporal wasting, normal conjunctiva, no scleral icterus, normal hearing, lips without lesions, neck normal range of motion. CARDIOVASCULAR: Not assessed. PULMONARY: Normal respiratory effort, no respiratory distress or use of accessory muscles, speaking in full sentences, no tachypnea. EXTREMITIES: No pedal edema or cyanosis. SKIN: Normal skin appearance. NEUROLOGIC: Alert and oriented x4. PSHYCHIATRIC: Appropriate affect, mood normal, behavior normal, intact thought and speech. Breast/axilla and chest examination do not reveal any palpable masses LABORATORY DATA: I have personally reviewed and interpreted each of the patient?s relevant lab tests, abnormal findings are below: Date 08/15/24 08/16/24 ??WHITE?BLOOD?COUNT?(Thou/mm3) 6.6 4.9 ??RED?BLOOD?COUNT?(Miln/mm3) 3.47?L 3.40?L ??HEMOGLOBIN?(gm/dl) 9.7?L 9.7?L ??HEMATOCRIT?(%) 29.5?L 30.0?L ??PLATELET?COUNT?(Thou/mm3) 170 147 ??NEUTROPHILS?%,?AUTO?(%) 58 55 ??LYMPH?%,?AUTO?(%) 32 34 ??NEUTROPHILS,?AUTO?(Thou/mm3) 3.8 2.7 ??GLUCOSE,RANDOM?(mg/dL) ? 103 ??BLOOD?UREA?NITROGEN?(mg/dL) ? 6?L ??CREATININE?(mg/dL) ? 0.90 ??SODIUM?(mmol/L) ? 141 ??POTASSIUM?(mmol/L) ? 3.5 ??CHLORIDE?(mmol/L) ? 108?H ??CrCl?(CandG)?(ml/min) ? 72.54 ??AST/SGOT?(Unit/L) ? 18 ??ALT/SGPT?(Unit/L) ? 19 ??ALKALINE?PHOSPHATASE?(Unit/L) ? 56 ??BILIRUBIN,?TOTAL?(mg/dL) ? 0.4 ??PROTEIN?TOTAL?(gm/dl) ? 5.3?L ??ALBUMIN,?SERUM?(gm/dl) ? 3.3?L ??GLOBULIN?(gm/dl) ? 2.0?L ??ALBUMIN/GLOBULIN?RATIO ? 1.7 ??CALCIUM,?SERUM?(mg/dL) ? 7.5?L ??CALCIUM?SERUM?(CORRECTED)?(mg/dL) ? 8.1?L ??MAGNESIUM?(mg/dL) ? 1.7 ASSESSMENT/PLAN: 1. Stage Ia (pT1a, sN0, cM0), ER positive, IL positive, HER2/yolande, grade 1 invasive ductal carcinoma of the right breast. 2. S/p lumpectomy and sentinel lymph node biopsy (01/21/2023) 3. History of Nleson's esophagus, history of fundoplication x 2, history of vagotomy. 4. Osteoporosis. The patient gets Prolia injections from her test evaluator in [place] every 6 months. Myesha, a female patient with a history of stage 1 breast cancer, gastroparesis, and multiple gastrointestinal surgeries, presents with recent hospitalization for intractable nausea and vomiting. Intractable Nausea and Vomiting Assessment: Patient was admitted on August 16 for intractable nausea and vomiting, which led to low blood pressure. Endoscopy revealed inflammation but no significant bleeding. Small bleeding was attributed to retching. Patient has a complex gastrointestinal history, including Garcia fundoplication (2004), Toupet fundoplication (2016), vagotomy, gastroparesis, and pyloroplasty (2016). Current episode appears consistent with her history of gastroparesis and post- surgical complications. Plan: - Continue ondansetron (Zofran) sublingual as needed for nausea - Prescribe new prescription for ondansetron (Zofran) sublingual - Recommend Valsalva maneuver during vomiting episodes - Consider alkaline foods (e.g., sprouted beans, soaked dry fruits) and drinking water from copper cups to help with acidity - Order head scan to rule out intracranial causes of nausea, considering cancer history - Patient educated on importance of continuing thyroid medication, especially during illness Breast Cancer (Stage 1, Status Post Lumpectomy) Assessment: Patient has a history of stage 1 breast cancer, status post right breast lumpectomy. Currently on tamoxifen therapy. Plan: - Continue tamoxifen therapy - Refill tamoxifen prescription for one year Osteoporosis and Osteopenia Assessment: Patient has a history of osteoporosis and osteopenia. Currently taking vitamin D supplements inconsistently. Plan: - Prescribe vitamin D3 supplement - Recommend consistent daily intake of vitamin D3 - Advise purchase of calcium supplements (e.g., gummies from [employer] or [email or web address]) - Educate on importance of consistent calcium and vitamin D intake Hypothyroidism Assessment: Patient reports taking thyroid medication but discontinuing during illness due to perceived side effects. Thyroid levels are noted to be off. Plan: - Educate patient on importance of consistent thyroid medication, especially during illness - Instruct patient to chew thyroid medication if unable to take with water CBC CMP CA 15-3 mammogram ORDERS: Order # Description [id number] 3D Mammogram Diagnostic + Right [id number] DXA L-Spine and Hip [id number] MD Follow Up 6 Month + Comprehensive Metabolic Panel - 12 + CBC with Auto Diff + CA 15-3 [id number] Basic Metabolic Panel [id number] Basic Metabolic Panel [id number] Basic Metabolic Panel RETURN TO CLINIC: BILLING AND COMPLIANCE: I reviewed external records from providers outside my specialty as summarized above. I spent a total of 50 minutes on this patient?s care on the day of their visit excluding time spent related to any billed procedures. This time includes time spent with the patient as well as time spent documenting in the medical record, reviewing patients records and tests, obtaining history, placing orders, communicating with other healthcare professionals, counseling the patient, family or caregiver, and/or care coordination for the diagnoses above. Electronically Signed by: Lucas Vidal MD T: 4:43 PM CC: PCP: Vania Hernández Referring: Vania Hernández This document was completed utilizing speech recognition software. Grammatical errors, random word insertions, pronoun errors, and incomplete sentences are an occasional consequence of this system due to software limitations, ambient noise, and hardware issues. Any formal questions or concerns about the content, text or information contained within the body of this dictation should be directly addressed to the provider for clarification.
== END 2024-09-24 23:59 | disposition home or self-care (01) ==
LOC: SCTC 14:21
PROVIDERS: PCP Family Medicine; Referring Provider Family Medicine; Visit Provider Internal Medicine Hematology & Oncology
DX: C50.411 Malignant neoplasm of upper-outer quadrant of right female breast (principal); Z17.0 Estrogen receptor positive status [ER+]; Z17.21 Progesterone receptor positive status; Z17.32 Human epidermal growth factor receptor 2 negative status; Z90.11 Acquired absence of right breast and nipple; Z79.810 Long term (current) use of selective estrogen receptor modulators (SERMs); R11.2 Nausea with vomiting, unspecified; R03.1 Nonspecific low blood-pressure reading; M81.0 Age-related osteoporosis without current pathological fracture; M85.88 Other specified disorders of bone density and structure, other site; E03.9 Hypothyroidism, unspecified
CPT/HCPCS: 99212; G0463

== ENCOUNTER → 2024-10-26 | Outpatient (CLI) | payer BC, SELFPAY ==
[2024-10-26 08:34] LABS: Basophils # (Auto) 0.1 Thou/mm3 (0.0-0.2); Basophils % (Auto) 1 % (0-2.5); Eosinophils # (Auto) 0.2 Thou/mm3 (0.0-0.5); Eosinophils % (Auto) 3 % (0-10); Hematocrit 36.6 % (36.0-46.0); Hemoglobin 11.5 g/dL (12.0-16.0); Immature Granulocytes Auto 0.01 Thou/mm3 (0.00-0.00); Lymphocytes # (Auto) 1.7 Thou/mm3 (1.0-4.8); Lymphocytes % (Auto) 37 % (10-50); Mean Corpuscular HGB Conc 31.4 g/dl (31.0-37.0); Mean Corpuscular Hemoglobin 28.1 pg (25.0-35.0); Mean Corpuscular Volume 90 fL (80-100); Monocytes # (Auto) 0.3 Thou/mm3 (0.0-0.8); Monocytes % (Auto) 7 % (0-12); Neutrophils # (Auto) 2.5 Thou/mm3 (1.8-7.7); Neutrophils % (Auto) 52 % (37-80); Nucleated Red Blood Cell # 0.00 Thou/mm3 (0.00-0.00); Nucleated Red Blood Cell % 0 /100 WBC (0); Platelet Count 184 Thou/mm3 (140-440); RDW Standard Deviation 46.3 fL (36.4-46.3); Red Blood Count 4.09 Miln/mm3 (4.00-5.20); White Blood Count 4.7 Thou/mm3 (3.6-11.0)
[2024-10-26 08:44] LABS: Alanine Aminotransferase 28 U/L (10-49); Albumin, Serum 4.2 gm/dL (3.4-4.8); Albumin/Globulin Ratio 1.9 (1.2-2.2); Alkaline Phosphatase 72 U/L (46-116); Anion Gap 11 (7-16); Aspartate Amino Transferase 24 U/L (0-34); BUN/Creatinine Ratio 14 Ratio (12-20); Bilirubin,Total 0.6 mg/dL (0.3-1.2); Blood Urea Nitrogen 14 mg/dL (9-23); Calcium 8.7 mg/dL (8.3-10.6); Calcium (Corrected) 8.7 mg/dL (8.5-10.1); Carbon Dioxide 27.1 mMol/L (20.0-31.0); Chloride 106 mMol/L (98-107); Creatinine (Component) 1.0 mg/dL (0.6-1.3); Globulin 2.2 gm/dL (2.3-3.5); Glucose 105 mg/dL (74-106); Osmolality,Calculated 287 (275-295); Potassium 4.3 mMol/L (3.4-5.1); Sodium 144 mMol/L (136-145); Total Protein 6.4 gm/dL (5.7-8.2); eGFR > 60 See Note
[2024-10-26 09:19] LABS: CA 15-3 16.2 U/mL (<32.4)
== END | disposition home or self-care (01) ==
PROVIDERS: PCP Family Medicine; Referring Provider Internal Medicine Hematology & Oncology; Visit Provider Internal Medicine Hematology & Oncology
DX: C50.211 Malignant neoplasm of upper-inner quadrant of right female breast (principal)
CPT/HCPCS: 36415; 80053; 85025; 86300